=== PATIENT | male | born 1925 | race Caucasian/White ===

== ENCOUNTER 2016-08-26 17:37 | Inpatient (IN) | payer MEDICARE, OTHER ==
[~2016-08-26] VITALS: Ht 185.4 cm; Wt 109.1 kg
[~2016-08-26 17:37] MED LIST: ASPIRIN325 MG PO; BAYER CHEWABLE81 MG PO; BENADRYL25 MG PO; BUMEX2 MG PO; CIPRO500 MG PO; CLEOCIN HCL150 MG PO; CLEOCIN HCL300 MG PO; COMBIVENT RESPIM4 GM INH; DIOVAN HCT 80-11 TAB PO; DORYX150 MG PO; DOXYCYCLINE HY100 M2 PO; HYDROCODONE-APA1 TAB PO; HYTRIN5 MG PO; KLOR-CON 1010 MEQ PO; LASIX20 MG PO; LEVAQUIN500 MG PO; NORCO 7.5/325 T1 TA1 PO; PRILOSEC20 MG PO; STERAPRED DS 1210 MG PO; ULTRAM50 MG PO
[2016-08-26 18:37] LABS: BASOPHILS 0.1 % (0-2); EOSINOPHILS 0.1 % (0-7); HEMATOCRIT 34.1 % (42.0-54.0); HEMOGLOBIN 10.9 g/dL (13.5-17.5); IMMATURE GRANULOCYTES 0.1 % (0-5); LYMPHOCYTES 9.5 % (15-50); MCH 30.4 pg (26.0-34.0); MCV 95.3 fL (80.0-100.0); MEAN PLATELET VOLUME 9.3 fL (7.4-10.4); MONOCYTES 5.3 % (2-11); NEUTROPHILS 84.9 % (40-80); RBC 3.58 10x6/uL (4.20-6.10); RDW 14.4 % (11.5-14.5); WBC 9.6 10x3/uL (4.8-10.8)
[2016-08-26 18:42] LABS: PLATELET COUNT 143 10x3/uL (130-400)
[2016-08-26 19:21] LABS: ALBUMIN 2.3 g/dL (3.4-5.0); ALKALINE PHOSPHATASE 109 U/L (46-116); ALT (SGPT) 13 U/L (10-68); BILIRUBIN - TOTAL 0.57 mg/dL (0.2-1.3); CARBON DIOXIDE 26.6 mmol/L (21.0-32.0); GLUCOSE 104 mg/dL (74-106); PROTEIN - SERUM 6.4 g/dL (6.4-8.2); UREA NITROGEN 18 mg/dL (7-18)
[2016-08-26 19:32] LABS: CALC OSMOLALITY 280 mosm/kg (275-300); CALCIUM 8.2 mg/dL (8.5-10.1); CHLORIDE - SERUM 105 mmol/L (98-107); CREATINE KINASE 54 UL (21-232); POTASSIUM - SERUM 4.1 mmol/L (3.5-5.1); PRO BNP 1 pg/mL (0-450); SODIUM 140 mmol/L (136-145); eGFR NON AFRICAN AMERICAN 75 mL/min (90-120)
[2016-08-26 19:36] LABS: TROPONIN-I 0.073 ng/mL (0.000-0.060)
[2016-08-26 20:45] LABS: APPEARANCE CLEAR (CLEAR); COLOR YELLOW (YELLOW); SPECIFIC GRAVITY 1.025 (1.005-1.020)
[2016-08-26 20:46] LABS: BILIRUBIN NEGATIVE (NEGATIVE); GLUCOSE NEGATIVE (NEGATIVE); KETONE NEGATIVE (NEGATIVE); LEUKOCYTE ESTERASE 1+ (NEGATIVE); NITRITE POSITIVE (NEGATIVE); PROTEIN TRACE mg/dL (NEGATIVE); UROBILINOGEN NORMAL (NORMAL)
[2016-08-26 20:47] LABS: BACTERIA FEW /hpf (NONE SEEN); RED CELLS - URINE 0-5 /hpf (0-5); WHITE CELLS - URINE >50 /hpf (0-5)
--- NOTE | 2016-08-26 23:45 | NUR ---
PT RECEIVED FROM ER AWAKE, ALERT, CONFUSED. PT TRANSFERRED TO BED WITHOUT ANY DIFFICULTY. PT IS DROWSY AND CURRENTLY RESTING COMFORTABLY. CONTINUE TO MONITOR CLOSELY.
[2016-08-27 01:21] VITALS: BP 108/62
--- NOTE | 2016-08-27 03:35 | NUR ---
PT LYING IN BED, EYES CLOSED, RESPIRATIONS EVEN AND UNLABORED, EASILY ROUSABLE TO VERBAL STIMULI. PT DENIES ANY NEEDS, STATES HE IS COMFORTABLE AT THIS TIME. CONTINUE TO MONITOR CLOSELY.
[2016-08-27 03:44] VITALS: BP 108/62; Ht 185.4 cm; Wt 109.1 kg
[2016-08-27 04:47] VITALS: BP 103/59
--- NOTE | 2016-08-27 07:00 | NUR ---
PT WAS RECEIVED IN BED AWAKE AND ORIENTED X 2 AT THE BEGINNING OF THIS SHIFT. PLEASANT MAN. LEFT ARM 20 GUAGE IV GOING KVO RATE OF FLOW WITH NS. NO VOICED NEEDS AND/OR CONCERNS AT THIS TIME. WILL BE MONITORING PT AND ASSISTING PRN WITH ADL'S. CALL LIGHT IS IN REACH.
[2016-08-27 08:40] VITALS: BP 117/68
--- NOTE | 2016-08-27 17:07 | NUR ---
PT HAS HAD AN UNEVENTFUL DAY TODAY. BOBO CATHETER IS PATENT AND DRAINING CLEAR YELLOW URINE TO GRAVITY. FAMILY VISITED TODAY. CALL LIGHT IN REACH. PT HAS BEEN TURNED AND REPOSITIONED Q 2 HOURS.
--- NOTE | 2016-08-27 19:45 | NUR ---
PT AWAKE, ALERT, ORIENTED, LYING IN BED, HOB 30 DEGREES. PULLED PT UP IN THE BED PER REQUEST, DENIES ANY NEEDS. SON WAS IN ROOM, HAS LEFT NOW. FAMILY PHONE NUMBERS ON BEDSIDE TABLE, TO CALL WITH ANY CHANGES AND NEEDS. CONTINUE TO MONITOR CLOSELY. BED LOW, CALL LIGHT IN REACH.
[2016-08-27 20:24] VITALS: BP 125/75
[2016-08-28 01:28] VITALS: BP 115/60
--- NOTE | 2016-08-28 02:09 | NUR ---
PT LYING IN BED, HOB 30 DEGREES, EYES CLOSED, RESPIRATIONS EVEN AND UNLABORED. PT EASILY ROUSABLE TO VERBAL STIMULI, DENIES ANY NEEDS. PT'S PENIS IS SPLIT ON TOP R/T EDEMA. CALMASEPTINE ORDERED. CONTINUE TO MONITOR CLOSELY.
--- NOTE | 2016-08-28 04:21 | NUR ---
PT RESTING COMFORTABLY, IN NO ACUTE DISTRESS. CONTINUE TO MONITOR CLOSELY.
[2016-08-28 04:34] VITALS: BP 106/61
[2016-08-28 05:09] LABS: BASOPHILS 0 % (0-2); EOSINOPHILS 0.1 % (0-7); HEMATOCRIT 35.5 % (42.0-54.0); HEMOGLOBIN 11.4 g/dL (13.5-17.5); IMMATURE GRANULOCYTES 0.2 % (0-5); LYMPHOCYTES 13.5 % (15-50); MCH 30.4 pg (26.0-34.0); MCHC 32.1 g/dL (31.0-37.0); MCV 94.7 fL (80.0-100.0); MEAN PLATELET VOLUME 9.4 fL (7.4-10.4); MONOCYTES 8.7 % (2-11); NEUTROPHILS 77.5 % (40-80); PLATELET COUNT 145 10x3/uL (130-400); RBC 3.75 10x6/uL (4.20-6.10); RDW 14.2 % (11.5-14.5); WBC 9.2 10x3/uL (4.8-10.8)
[2016-08-28 05:31] LABS: CALC OSMOLALITY 274 mosm/kg (275-300); CALCIUM 8.1 mg/dL (8.5-10.1); CARBON DIOXIDE 31.6 mmol/L (21.0-32.0); CHLORIDE - SERUM 101 mmol/L (98-107); GLUCOSE 102 mg/dL (74-106); PRO BNP 7208 pg/mL (0-450); SODIUM 137 mmol/L (136-145); UREA NITROGEN 16 mg/dL (7-18); eGFR NON AFRICAN AMERICAN 75 mL/min (90-120)
[2016-08-28 05:32] LABS: POTASSIUM - SERUM 3.4 mmol/L (3.5-5.1)
--- NOTE | 2016-08-28 06:00 | NUR ---
PT AWAKE, ALERT, ORIENTED THIS A.M., DENIES ANY NEEDS. PT STATES HE IS FEELING SOME BETTER. CONTINUE TO MONITOR CLOSELY.
--- NOTE | 2016-08-28 07:22 | NUR ---
PT LAYING TO R SIDE SLEEPING. NO S/S DISTRESS NOTED. RR EVEN AND UNLABORED. WILL CONT TO MONITOR
--- NOTE | 2016-08-28 08:45 | NUR ---
PT YELLING OUT FROM ROOM THAT HIS LEGS HURT AND HE WANTS TO SIT ON SIDE OF THE BED. I WAS TOLD IN REPORT THAT PT WAS UNABLE TO GET OUT OF BED, FOR FEAR THAT HE WILL FALL I TOLD PT THAT HE CANNOT GET UP. PT IS VERY AGGITATED SCREAMING THAT "MY LEGS ARE ON FIRE". PT LEGS ARE RED AND SCALY. PULSES BILAT PALPABLE. BRIDGED HEELS AND PLACED PT HOUSE SHOES ON ASKED TO DO. PT STATES "MUCH BETTER". WILL CONT TO MONITOR.
[2016-08-28 08:46] VITALS: BP 108/61
[2016-08-28 12:00] VITALS: BP 105/57
--- NOTE | 2016-08-28 14:15 | NUR ---
PT UP IN CHAIR FAMILY IN ROOM. DENIES ANY PAIN DENIES ANY NEEDS
--- NOTE | 2016-08-28 15:04 | NUR ---
PT SITTING UP IN BED WATCHING TV, DENIES ANY NEEDS WILL CONT TO MONITOR.
--- NOTE | 2016-08-28 16:18 | NUR ---
* Is the patient Alert and Oriented? No 0 * How many steps to enter\\exit or inside your home? (2) 4 inch 0 * PCP DR Cristo Tejada 0 * [facility] [address] * Preadmission Environment Home with Family 0 * ADLs Partial Dependent 0 * Partial ADLs (Assistance needed) Bathing Dressing Eating Medication Management Toileting Transfers 0 * Equipment Oxygen Wheelchair 0 * List name and contact numbers for known caregivers / representatives who currently or will assist patient after discharge: Laquita- - [phone] Madeleine Fernandez- dtr- [phone]- night JR- son in law- [phone] 0 * Community resources currently utilized Other 0 * Please name any agencies selected above. Son in law states patient has care w/ "[facility]". 0 * Additional services required to return to the preadmission environment? No 0 * Can the patient safely return to the preadmission environment? Yes 0 * Has this patient been hospitalized within the prior 30 days at any hospital? Yes 0
--- NOTE | 2016-08-28 16:54 | NUR ---
Patient has dementia. CM checked his room and no one was present. TC to his , Laquita, no answer. TC to his daughter, Madeleine Fernandez. The son in law answered. He states he helps to take care of the patient. He states the patient has a nurse to help him at home from ?? "[facility]". CM will clarify w/ or dtr. The son in law states he is a little hard of hearing. The patient has home O2 which he does not require at times. He is wheelchair bound. He has a small shower in his room with a bench. Requires assistance for bathing and dressing. Has dementia therefore requires assistance with meds. MR Newman states the has been talking about "putting him into a assisted. " But he states they will be taking him home. Transportation needs to be determined per MR Newman. Patient had been at [facility] previously after shoulder surgery approximately 2 yrs ago per the son in law. Pharmacy- [facility] [address] DME provider- son in law cannot recall the name. CM will follow to assist as is appropriate.
[2016-08-28 17:00] VITALS: BP 94/64
[2016-08-28 19:41] VITALS: BP 84/53
--- NOTE | 2016-08-28 21:12 | NUR ---
HS MEDS GIVEN WITH FRESH ICE WATER. PT DENIES PAIN OR NEEDS.
--- NOTE | 2016-08-28 23:38 | NUR ---
PT RESTING WELL WITHOUT C/O OR DISTRESS NOTED. NO CHANGES NOTED IN ASSESSMENT. CALL LIGHT WITHIN REACH. WILL CONT TO MONITOR.
[2016-08-29 00:59] VITALS: BP 86/50
--- NOTE | 2016-08-29 01:56 | NUR ---
RESTING WITH EYES CLOSED, RESPERATIONS EVEN, NO S/S DISTRESS NOTED.
[2016-08-29 05:51] LABS: BASOPHILS 0.1 % (0-2); EOSINOPHILS 0.1 % (0-7); HEMATOCRIT 31.1 % (42.0-54.0); IMMATURE GRANULOCYTES 0.1 % (0-5); LYMPHOCYTES 17.7 % (15-50); MCH 30.5 pg (26.0-34.0); MCHC 32.2 g/dL (31.0-37.0); MCV 94.8 fL (80.0-100.0); MEAN PLATELET VOLUME 9.5 fL (7.4-10.4); MONOCYTES 9.8 % (2-11); NEUTROPHILS 72.2 % (40-80); PLATELET COUNT 130 10x3/uL (130-400); RBC 3.28 10x6/uL (4.20-6.10); RDW 14.3 % (11.5-14.5); WBC 7.3 10x3/uL (4.8-10.8)
[2016-08-29 06:02] LABS: CALC OSMOLALITY 280 mosm/kg (275-300); CARBON DIOXIDE 34.3 mmol/L (21.0-32.0); CHLORIDE - SERUM 100 mmol/L (98-107); GLUCOSE 103 mg/dL (74-106); MAGNESIUM - SERUM 1.7 mg/dL (1.8-2.4); PHOSPHOROUS 3.7 mg/dL (2.5-4.9); POTASSIUM - SERUM 3.6 mmol/L (3.5-5.1); SODIUM 139 mmol/L (136-145); UREA NITROGEN 20 mg/dL (7-18); eGFR NON AFRICAN AMERICAN 75 mL/min (90-120)
--- NOTE | 2016-08-29 07:10 | NUR ---
PT SITTING UP IN BED CNAS AT BEDSIDE CLEANING UP PT, WILL CONT TO MONITOR
[2016-08-29 08:35] VITALS: BP 96/55
--- NOTE | 2016-08-29 08:47 | NUR ---
ALBUMIN NOT GIVEN TUBING NOT IN [facility]Y CALLED WILL GIVE WHEN TUBING IS ON FLOOR
--- NOTE | 2016-08-29 09:20 | HP ---
PATIENT: MONY HALL MEDICAL RECORD: [id number] ACCOUNT: [id number] LOCATION:[address] : [birth year] ADMISSION DATE: 08/26/16 HISTORY AND PHYSICAL EXAMINATION DATE OF ADMISSION: 08/26/2016 CHIEF COMPLAINT: Shortness of breath. HISTORY OF PRESENT ILLNESS: The patient is an 89-year-old gentleman, who is not a patient of Dr. Robles'marianne, but apparently the Emergency Room physician felt that he had been a patient of Dr. Thompson. The patient is therefore admitted. He was admitted for shortness of breath. PAST MEDICAL HISTORY: Apparently significant that he has had dementia. He has also had a history of having dependent edema. He has had BPH, congestive heart failure, rheumatoid arthritis. FAMILY HISTORY: Apparently, mother and father both in their 80s of heart disease. SOCIAL HISTORY: The patient was born and raised in [place]. He has lived in [place] 20+ years. Apparently, he is . ALLERGIES: He has no known drug allergies. MEDICATIONS: Omeprazole 20 mg daily, aspirin 325 once a day, Hytrin 5 mg p.o. day. HABITS: The patient states that he continued to be a 1 pack per day smoker. REVIEW OF SYSTEMS: CONSTITUTIONAL: He denies any headaches, seizure or syncope. Denied change in visual or auditory acuity. PULMONARY: He has reported increasing shortness of breath. CARDIOVASCULAR: He denies any chest pain, palpitation, PND or orthopnea. GASTROINTESTINAL: No chronic nausea, vomiting, melena or hematochezia. GENITOURINARY: No urgency, frequency, or dysuria. PHYSICAL EXAMINATION: VITAL SIGNS: In the Emergency Room, the patient was afebrile. His vital signs were stable. GENERAL: He is oriented to person, place, and not time. HEENT: Head is normocephalic. No lesions. Ears: TMs clear. Eyes: Pupils equal, round and reactive to light. Extraocular movements are intact. Nasal cavity, oral cavity, oropharynx clear. NECK: Supple. There is no adenopathy. HEART: Has a regular rate. LUNGS: Clear. ABDOMEN: Soft, bowel sounds positive. EXTREMITIES: The patient does have 2+ pretibial edema. LABORATORY DATA: The patient had a white count of 9.6, hemoglobin 10.9, hematocrit was 34.1, his platelets were 143. Has sodium of 140, potassium 4.1, chloride 105, CO2 is 26, BUN was 18, creatinine was 0.1. The patient had HISTORY AND PHYSICAL [id number] MONY HALL urinalysis, which showed greater than 50 wbc's per high powered field, few bacteria were present. Chest x-ray on the revealed chronic changes, minimal area of basilar atelectasis or infiltrates were noted. ASSESSMENT: 1. Urinary tract infection. 2. History of dependent edema. 3. Benign prostatic hypertrophy. PLAN: The patient will be admitted. Urine cultures will be obtained. He will be placed on Rocephin 1 gram. He will also be placed on Lasix 20 mg IV for slow gentle diuresis and continue to evaluate. TRANSINT:[id number] Voice Confirmation ID: [id number] DOCUMENT ID: [id number] MARGA CINTRON MD at 0920 CC: [id number] DICTATION DATE: 08/27/16 0637 COMMUNICATIONS PLANNER: 08/27/16 0912 ADM IN [place] [id number] [place] [address]
--- NOTE | 2016-08-29 11:04 | NUR ---
PT ASLEEP WILL DO DRESSING CHANGE AFTER LUNCH TRAY IS FINISHED FAMILY AT BEDSIDE NO S/S OF DISTRESS WILL CONTINUE TO MONITOR
[2016-08-29 11:44] VITALS: BP 90/49
[2016-08-29 16:00] VITALS: BP 89/62
--- NOTE | 2016-08-29 18:27 | NUR ---
HELPED PT GET BACK TO BED, TURNED LIGHTS OFF, PT READY TO GO TO SLEEP DENIES ANY NEEDS
[2016-08-29 21:00] VITALS: BP 91/52
--- NOTE | 2016-08-29 22:48 | NUR ---
HS MEDS GIVEN, REPOSITIONED IN BED FOR COMFORT.
--- NOTE | 2016-08-30 00:45 | NUR ---
RESTING WITH EYES CLOSED, RESPERATIONS EVEN, NO S/S DISTRESS NOTED.
[2016-08-30 04:00] VITALS: BP 96/52
[2016-08-30 05:08] LABS: BASOPHILS 0.1 % (0-2); EOSINOPHILS 0.3 % (0-7); HEMATOCRIT 31.5 % (42.0-54.0); IMMATURE GRANULOCYTES 0.1 % (0-5); LYMPHOCYTES 13.6 % (15-50); MCH 29.9 pg (26.0-34.0); MCHC 31.7 g/dL (31.0-37.0); MCV 94.3 fL (80.0-100.0); MEAN PLATELET VOLUME 9.4 fL (7.4-10.4); MONOCYTES 7.6 % (2-11); NEUTROPHILS 78.3 % (40-80); PLATELET COUNT 146 10x3/uL (130-400); RBC 3.34 10x6/uL (4.20-6.10); RDW 14.3 % (11.5-14.5); WBC 7.6 10x3/uL (4.8-10.8)
[2016-08-30 05:21] LABS: ANION GAP 9.9 mmol/L (8-16); CALCIUM 7.8 mg/dL (8.5-10.1); CARBON DIOXIDE 31.9 mmol/L (21.0-32.0); CREATININE - SERUM 1.3 mg/dL (0.6-1.3); MAGNESIUM - SERUM 1.7 mg/dL (1.8-2.4); PHOSPHOROUS 3.6 mg/dL (2.5-4.9); POTASSIUM - SERUM 3.8 mmol/L (3.5-5.1)
[2016-08-30 08:00] VITALS: BP 103/49
--- NOTE | 2016-08-30 10:14 | NUR ---
RESP UL ON 02 1L PA. IV PATENT. JIHAN INTACT. TELEMETRY CAF. HR 82. WILL CONT. PLAN OF CARE.
--- NOTE | 2016-08-30 11:00 | NUR ---
UP TO CHAIR WITH PT ASSIST.
[2016-08-30 11:45] VITALS: BP 99/53
[2016-08-30 15:56] VITALS: BP 103/55
--- NOTE | 2016-08-30 19:35 | NUR ---
ASSESSMENT COMPLETE, ALERT AND ORIENTED TO SELF AND PLACE. O2 AT 2 LITER VIA NS, RT STATED THAT PTS SATS WERE 88 ON RA SO SHE PLACED O2 BACK ON PT. OV TO LEFT FOREARM WITH NS AT KVO, SITE CLEAN AND DRY. BOBO DRAINING TO GRAVITY, PT DENIES PAIN OR NEEDS, BED LOW, CL IN REACH.
[2016-08-30 21:30] VITALS: BP 105/58
--- NOTE | 2016-08-30 22:10 | NUR ---
HS MEDS GIVEN, DENIES PAIN OR NEEDS. BED LOW, CL IN REACH.
[2016-08-31 00:55] VITALS: BP 94/49
[2016-08-31 05:55] VITALS: BP 103/61
[2016-08-31 07:04] LABS: BASOPHILS 0.1 % (0-2); EOSINOPHILS 0.4 % (0-7); HEMATOCRIT 33.8 % (42.0-54.0); HEMOGLOBIN 10.6 g/dL (13.5-17.5); IMMATURE GRANULOCYTES 0.1 % (0-5); LYMPHOCYTES 14.7 % (15-50); MCHC 31.4 g/dL (31.0-37.0); MCV 95.8 fL (80.0-100.0); MEAN PLATELET VOLUME 9.4 fL (7.4-10.4); NEUTROPHILS 77.7 % (40-80); PLATELET COUNT 183 10x3/uL (130-400); RBC 3.53 10x6/uL (4.20-6.10); RDW 14.3 % (11.5-14.5); WBC 6.9 10x3/uL (4.8-10.8)
--- NOTE | 2016-08-31 07:17 | NUR ---
AM ROUNDS- PT IN BED, REQUESTED A CUP OF COFFEE. WILL PROVIDED PT WITH SOME COFFEE. PT DENIES ANY OTHER NEEDS AT THIS TIME. BED LOW AND LOCKED, BEDSIDE RAILS X2, LT ARM IV INFUSING NS AT KVO. CALL LIGHT IN REACH, NAD NOTED, WILL CONTINUE TO MONITOR.
[2016-08-31 07:19] LABS: ANION GAP 6.7 mmol/L (8-16); CALCIUM 8.3 mg/dL (8.5-10.1); CARBON DIOXIDE 36.4 mmol/L (21.0-32.0); CREATININE - SERUM 1.2 mg/dL (0.6-1.3); POTASSIUM - SERUM 4.1 mmol/L (3.5-5.1)
--- NOTE | 2016-08-31 08:00 | NUR ---
ADMINISTERED MORNING MEDS. PT IN BED, FIXING TO EAT BREAKFAST. PHOTOCOMPOSING MACHINE OPERATOR AT BEDSIDE TO DO VITAL SIGNS. PT DENIES ANY NEEDS AT THIS TIME. CALL LIGHT IN REACH, NAD NOTED, WILL CONTINUE TO MONITOR.
[2016-08-31 08:20] VITALS: BP 91/57
[2016-08-31 11:44] VITALS: BP 101/67
--- NOTE | 2016-08-31 13:07 | NUR ---
PT UP TO CHAIR, ASKED TO HAVE HIS JACKET PUT AROUND HIS SHOULDERS. PT DENIES ANY OTHER NEEDS AT THIS TIME. CALL LIGHT IN REACH, NAD NOTED, WILL CONTINUE TO MONITOR.
[2016-08-31 16:00] VITALS: BP 100/60
--- NOTE | 2016-08-31 17:06 | NUR ---
Rehab Note- Acute Rehab Prescreen order received. Will visit with the patient. He is noted to be wheelchair bound but was noted to be mod I with transfer, now noted to require 75% assist per PT. Will follow the patient at this time. Thank you for this referral! Michelle Reardon RN Clinical Liaison, [facility] Rehab
[2016-08-31 20:16] VITALS: BP 110/69
--- NOTE | 2016-08-31 20:19 | NUR ---
PT LYING IN BED, AWAKE, ALERT, ORIENTED AT THIS TIME, REQUESTING A SHOWER, DENIES ANY OTHER NEEDS. CONTINUE TO MONITOR CLOSELY. BED LOW, CALL LIGHT IN REACH, SIDE RAILS X 2, HOB 20 DEGREES.
[2016-09-01 00:15] VITALS: BP 99/60
--- NOTE | 2016-09-01 01:01 | NUR ---
PT LYING IN BED, EYES CLOSED, RESPIRATIONS EVEN AND UNLABORED. PT IS IN NO ACUTE DISTRESS. CONTINUE TO MONITOR CLOSELY.
[2016-09-01 05:15] VITALS: BP 82/44
[2016-09-01 05:54] LABS: BASOPHILS 0.2 % (0-2); EOSINOPHILS 0.5 % (0-7); HEMATOCRIT 33.8 % (42.0-54.0); HEMOGLOBIN 10.6 g/dL (13.5-17.5); IMMATURE GRANULOCYTES 0.3 % (0-5); LYMPHOCYTES 17.6 % (15-50); MCHC 31.4 g/dL (31.0-37.0); MCV 95.8 fL (80.0-100.0); MEAN PLATELET VOLUME 9.6 fL (7.4-10.4); NEUTROPHILS 73.4 % (40-80); RBC 3.53 10x6/uL (4.20-6.10); RDW 14.1 % (11.5-14.5); WBC 6.2 10x3/uL (4.8-10.8)
[2016-09-01 06:02] LABS: PLATELET COUNT 235 10x3/uL (130-400)
--- NOTE | 2016-09-01 06:12 | NUR ---
PT AWAKE, ALERT, ORIENTED, DENIES ANY NEEDS. PT HAS BEEN PULLED UP IN BED AND REPOSITIONED. AM MED GIVEN WITHOUT ANY DIFFICULTY. CONTINUE TO MONITOR.
[2016-09-01 06:32] LABS: ANION GAP 9.6 mmol/L (8-16); CALCIUM 8.3 mg/dL (8.5-10.1); CARBON DIOXIDE 34.5 mmol/L (21.0-32.0); CREATININE - SERUM 1.3 mg/dL (0.6-1.3); POTASSIUM - SERUM 4.1 mmol/L (3.5-5.1)
--- NOTE | 2016-09-01 07:40 | NUR ---
AM ROUNDING- RECEIVED REPORT FROM SCREEN PRINT OPERATOR NURSE HENNY. PT IS CURRENTLY LAYING IN BED ON BACK WITH EYES CLOSED RESTING. ON MONITOR SHOWING CONTROLLED A-FIB, HR 85. ON 02 AT 2L VIA NC. IV SEEN TO LEFT FOREARM WITH NS RUNNING AT KVO. CHRONIC BOBO CATHETER SEEN. NO NEED AT CURRENT TIME. WILL CONTINUE TO MONITOR AND CONTINUE WITH PLAN OF CARE.
[2016-09-01 07:56] VITALS: BP 96/58
--- NOTE | 2016-09-01 12:07 | NUR ---
Rehab Note- Spoke with the patient, interested in [facility] IRF stay. Will plan to admit today if the patient's physician are ready for discharge from the acute hospital. Spoke with ALFREDO Escobar and CHEKO Delgado. Thank you for this referral! Michelle Reardon RN Clinical Liaison, [facility] Rehab
[2016-09-01] MEDS ORDERED: IPRAT-ALBUT 0.5-3 ML INH (12:09)
[2016-09-01] MEDS ORDERED: BROVANA15 MCG/2 M INH (12:09)
[2016-09-01] MEDS ORDERED: PULMICORT0.5 MG/21 UPD (12:11)
--- NOTE | 2016-09-01 14:25 | NUR ---
PT IS CURRENTLY SITTING UP IN CHAIR RESTING. PT IS D/C TO REHAB TODAY. ASSISTED PT DIALING WIFES PHONE NUMBER SO HE CAN CALL AND TELL HER. NO NEED AT CURRENT TIME. WILL CONTINUE TO MONITOR AND AWAIT D/C PAPERWORK.
--- NOTE | 2016-09-01 14:27 | NUR ---
Patient Name: MONY HALL Encounter No: [id number] : 1925 Primary Insurance: MEDICARE A & B Anticipated DC Date: 09-01-2016 Planned Disposition: INPATIENT REHAB External Planned Provider: [facility] INPATIENT REH[facility] DCP follow-up note: CM SPOKE TO PT IN ROOM REGARDING ORDER FOR INPATIENT REHAB. PT IS INTERESTED IN INPATIENT REHAB BUT WOULD PREFER NOT TO GO BACK TO THE [facility] FOR REHAB NOR IS HE INTERESTED IN SNF CARE. PT IN AGREEMENT WITH DISCHARGE TODAY TO [facility] INPATIENT REHAB, HE HAS MET WITH THE REHAB PERSON AND WOULD LIKE TO GIVE THEM A TRY. PT REPORTS HE WILL CALL HIS AND LET HER KNOW. IMPORTANT MESSAGE FROM MEDICARE PROVIDED AND EXPLAINED. CM CALLED PT'S SPOUSE AT HOME, , LEFT MESSAGE. CM CALLED PT'S LISTED PRIMARY EMERGENCY CONTACT, LORRAINE FLORES WHO REPORTS BEING PT'S PRIMARY CAREGIVER AT HOME AND HE IS IN AGREEMENT WITH INPATIENT REHAB AND WILL NOTIFY JOSI TODAY. CM SPOKE TO LAINA OF INPATIENT REHAB, THEY PLAN TO ACCEPT PT TODAY FOR REHAB. [facility] INPATIENT REHAB TO CONTACT MED 2 NURSE WITH ROOM NUMBER WHEN READY TO ACCEPT PT AND NURSE REPORT. Rodrigo Serrato, CASE MANAGEMENT
--- NOTE | 2016-09-01 17:34 | NUR ---
1700- CALLED REPORT TO REHAB. SPOKE WITH VAUGHN AND GAVE REPORT.
--- NOTE | 2016-09-01 17:34 | NUR ---
D/C INSTRUCTIONS EXPLAINED TO PT. D/C PAPERWORK SIGNED BY PT AND PLACED IN CHART. IV TO LEFT FOREARM REMOVED WITH CATH TIP INTACT. COVERED SITE WITH 2X2 GUAZE PADS AND SECURED SITE WITH TEGADERM. TOLERATED WELL. HEART MONITOR REMOVED AND RETURNED TO [facility] IN TELEMETRY. PT D/C TO REHAB VIA WHEELCHAIR.
== END 2016-09-01 17:37 | DRG 292 ==
LOC: D.ER 17:37 → D.ICU 20:54 → D.ER 20:54 → D.M2 20:54 → D.ICU 22:21 → D.M2 23:18
PROVIDERS: Emergency Medicine; Family Medicine; Nurse Practitioner Family; ADMIT Family Medicine Adult Medicine
DX: I11.0 Hypertensive heart disease with heart failure (principal); N39.0 Urinary tract infection, site not specified; I50.9 Heart failure, unspecified; J44.9 Chronic obstructive pulmonary disease, unspecified; F03.90 Unspecified dementia, unspecified severity, without behavioral disturbance, psychotic disturbance, mood disturbance, and anxiety; N40.0 Benign prostatic hyperplasia without lower urinary tract symptoms; R19.02 Left upper quadrant abdominal swelling, mass and lump; B96.20 Unspecified Escherichia coli [E. coli] as the cause of diseases classified elsewhere; Z86.73 Personal history of transient ischemic attack (TIA), and cerebral infarction without residual deficits; Z72.0 Tobacco use

== ENCOUNTER 2016-09-01 16:50 | Inpatient (IN) | payer MEDICARE, OTHER ==
[~2016-09-01] VITALS: Ht 185.4 cm; Wt 77.1 kg
[~2016-09-01 16:50] MED LIST changes: +BROVANA15 MCG/2 M INH; +IPRAT-ALBUT 0.5-3 ML INH; +PULMICORT0.5 MG/21 UPD
--- NOTE | 2016-09-01 19:30 | NUR ---
RECEIVED REPORT FROM DAY SHIFT NURSE, PT ARRIVED TO REHAB UNIT WITH MED 2 STAFF VIA WHEELCHAIR, PT ALERT AND ORIENTED.
[2016-09-01 20:00] VITALS: BP 122/65
--- NOTE | 2016-09-01 23:15 | NUR ---
PT REST QUIETLY IN BED WITH EYE CLOSE, BED LOW, CALL LIGHT WITHIN REACH.
[2016-09-02 00:55] VITALS: BMI 22.4
--- NOTE | 2016-09-02 01:18 | NUR ---
ADMISSION ASSESSMENT COMPLETE. PATIENT STATES HE IS UNABLE TO SIGN HIS ADMISSION DOCUMENTS DUE TO POOR MANUAL DEXTERITY. INFORMATION CONTAINED IN THE DOCUMENTS WAS EARLIER EXPLAINED TO PATIENT BY SAMANTHA CALI. EXPLAINED TO PATIENT THAT HE CANNOT SIGN, HIS PRIMARY NURSE AND I WILL WITNESS HIS DOCUMENTS. PATIENT AGREES.
--- NOTE | 2016-09-02 07:10 | NUR ---
LYING IN BED EYES CLOSED RESTING QUIETLY. EASILY AROUSED VERBAL STIMULI. CALL LIGHT IN REACH.
[2016-09-02 07:28] LABS: BASOPHILS 0.2 % (0-2); EOSINOPHILS 0.5 % (0-7); HEMATOCRIT 32.3 % (42.0-54.0); HEMOGLOBIN 10.3 g/dL (13.5-17.5); IMMATURE GRANULOCYTES 0.3 % (0-5); LYMPHOCYTES 20.8 % (15-50); MCH 30.7 pg (26.0-34.0); MCHC 31.9 g/dL (31.0-37.0); MCV 96.1 fL (80.0-100.0); MEAN PLATELET VOLUME 9.5 fL (7.4-10.4); NEUTROPHILS 70.2 % (40-80); PLATELET COUNT 226 10x3/uL (130-400); RBC 3.36 10x6/uL (4.20-6.10); RDW 14.3 % (11.5-14.5); WBC 6.1 10x3/uL (4.8-10.8)
[2016-09-02 07:57] LABS: CALCIUM 8.3 mg/dL (8.5-10.1); CARBON DIOXIDE 32.6 mmol/L (21.0-32.0); CREATININE - SERUM 1.1 mg/dL (0.6-1.3); POTASSIUM - SERUM 3.6 mmol/L (3.5-5.1)
[2016-09-02 09:11] VITALS: BP 102/64
--- NOTE | 2016-09-02 09:30 | NUR ---
PT IN THERAPY
[2016-09-02 10:35] VITALS: Ht 185.4 cm; Wt 77.1 kg
--- NOTE | 2016-09-02 11:15 | NUR ---
IN GYM WITH PHYSICAL THERAPY
--- NOTE | 2016-09-02 13:30 | NUR ---
PT IN SHOWER WITH ASSISTANCE FROM FABRICIO ROD. PT WAS ABLE TO PERFORM SHOWER ON HIS OWN WITH STANDBY ASSISTANCE. PT C/O SCROTUM DISCOMFORT, AREA IS RED AND ALSO IN GROIN AREA WILL ORDER MELINDA OINTMENT.
--- NOTE | 2016-09-02 13:30 | NUR ---
SITTING UP ON BED.DENIES NEEDS.
--- NOTE | 2016-09-02 15:16 | NUR ---
SITTING UP IN BED RESTING QUIETLY. NO CONCERNS VOICED. OXYGEN IN PLACE ON 2L VIA NASAL CANULA. CALL LIGHT IN REACH.
--- NOTE | 2016-09-02 17:19 | NUR ---
ASSISTED BACK TO BED WITH MOD ASSIST. NO CONCERNS VOICED AT THIS TIME. CALL LIGHT AND BEDSIDE TABLE IN REACH
--- NOTE | 2016-09-02 18:50 | NUR ---
REMOVED OLD MEPILEX DRESSING TO BUTTOCKS. NO DRAINAGE PRESENT. BUTTOCKS IS RED 2CM STAGE 1 DECUB ON COCCYX AREA. REAPPLIED MEPILEX.
--- NOTE | 2016-09-02 19:15 | NUR ---
PT RESTING WITH EYES CLOSED, RESP QUIET, NO DISTRESS NOTED, LEFT UNDISTURBED AT THIS TIME
[2016-09-02 20:30] VITALS: BP 93/59
--- NOTE | 2016-09-02 20:30 | NUR ---
PT RESTING WITH EYES CLOSED, AROUSES TO SOFT VERBAL STIMULATION, PT CONFUSED TO PLACE AND TIME, PT REORIENTED, ASSESSMENT PER FLOW SHEE, VS OBTAINED, PT DENIES NEEDS OR PAIN AT THIS TIME
--- NOTE | 2016-09-02 21:25 | NUR ---
PT RESTING WITH EYES CLOSED, AROUSES TO SOFT VERBAL STIMULATION, ADM 2100 MED PO PER MD ORDERS, SE EMAR, PT DENIES NEEDS OR PAIN AT THIS TIME
--- NOTE | 2016-09-02 22:33 | NUR ---
PT HOLLERS OUT, PT REPOSITIONED TO RIGHT SIDE WITH PILLOW BEHIND BACK, UNDER ABD, AND BETWEN KNEES, PT DENIES FURTHER NEEDS, BED IN LOW POSTION, SIDE RAIL X 2, CALL LIGHT IN REACH
--- NOTE | 2016-09-03 | NUR ---
PT RESTING WITH EYES CLOSED, RESP QUIET, NO DISTRESS NOTED, LEFT UNDISTURBED AT THIS TIME
--- NOTE | 2016-09-03 02:05 | NUR ---
PT RESTING WITH EYES CLOSED, RESP QUIET, NO DISTRESS NOTED, LEFT UNDISTURBED AT THIS TIME, BED IN LOW POSITION, SIDE RAILS X 2, CALL LIGHT IN REACH, BED ALARM CONTINUES WORKING PROPERLY
--- NOTE | 2016-09-03 04:10 | NUR ---
PT RESTING WITH EYES CLOSED, RESP QUIET, NO DISTRESS NOTED, LEFT UNDISTURBED AT THIS TIME
--- NOTE | 2016-09-03 06:31 | NUR ---
PT RESTING WITH EYES CLOSED, AROUSES TO SOFT VERBAL STIMULATION, PT TO SIDE OF BED REQUESTED, ADM 0600 MED PO PER MD ORDERS, SEE EMAR, PT DENIES FURTHER NEEDS
--- NOTE | 2016-09-03 06:59 | NUR ---
SHIFT REPORT TO DAY SHIFT
--- NOTE | 2016-09-03 07:10 | NUR ---
SITTING UP ON SIDE OF BED. ALERT AND ORIENTED TO PERSON AND PLACE, REORIENTED TO TIME. PLEASANT AFFECT. CALL LIGHT IN REACH.
--- NOTE | 2016-09-03 08:56 | RHP ---
PATIENT: MONY HALL MEDICAL RECORD: [id number] ACCOUNT: [id number] [facility] [birth year] ADMISSION DATE: 09/01/16 REHABILITATION HISTORY AND PHYSICAL EXAMINATION POST ADMISSION PHYSICIAN EXAMINATION DATE OF ADMISSION: 09/01/2016 ADMITTING DIAGNOSIS: CHF with exacerbation. HISTORY OF PRESENT ILLNESS: The patient is admitted to the inpatient rehab with CHF and exacerbations. An 89-year-old gentleman that was presented to the Emergency Room with shortness of breath. He was found to have a UTI dependent edema, elevated BNP required supplemental oxygen treatment. He has a chronic Morocho catheter due to his immobility and use of transfer equipment and wheelchair. He states he is independent with all of his ADLs. He is currently max assist to total assist with mobility and he is set up for max assist for ADLs. He plans to return home and hopefully get back to his prior level of functioning or better if possible. COMORBIDITIES: In this patient include urinary tract infection, dependent edema, benign prostatic hypertrophy with chronic Morocoh, CVA, hypertension, lymphedema, history of TIA, BPH, elevated BNP, COPD, dementia, melanoma. He has had an abdominal wall mass in his left upper quadrant and also a history of rheumatoid arthritis. PAST MEDICAL HISTORY: Significant for dementia, dependent edema, BPH, CHF, rheumatoid arthritis, CVA, glaucoma, hypertension, COPD, pneumonia and cellulitis. PAST SURGICAL HISTORY: Includes right hip replacement, hernia surgery, ulcer surgery, shoulder cyst removal and back surgery. ALLERGIES: No known drug allergies. CURRENT MEDICATIONS: Include Hytrin 5 mg daily, potassium 20 mEq daily, Protonix 40 mg daily, Lasix 40 mg daily, budesonide 0.5 mg b.i.d., aspirin 325 mg daily, Brovana 15 mcg b.i.d., albuterol updrafts as needed and polyethylene glycol 17 grams in 8 ounces of water daily. HABITS: No alcohol or tobacco use. FAMILY HISTORY: Noncontributory. SOCIAL HISTORY: The patient hopes to return back home. REVIEW OF SYSTEMS: GENERAL: He does complain of weakness. HEENT: Denies cold, cough, or congestion. CARDIOVASCULAR: Denies chest pain. PHYSICAL EXAMINATION: VITAL SIGNS: Stable, afebrile. GENERAL: An elderly gentleman in no acute distress, alert upon exam. HEENT: Normocephalic, atraumatic. Mucosa moist. HISTORY AND PHYSICAL [id number] MONY HALL NECK: Supple, with no lymphadenopathy. LUNGS: Clear in upper [place]. HEART: Regular rate and rhythm. ABDOMEN: Benign. EXTREMITIES: Does have some trace peripheral edema. NEUROLOGIC: Intact. LABORATORY DATA: His white count 6.1, H&H 10 and 32 and platelet count is 226. His sodium is 139, potassium 3.6, BUN and creatinine of 33 and 1.1 and blood sugar was noted to be 95. 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 The patient has potential to make improvement. We instituted the following multidisciplinary therapies to include, but not limited to physical, occupational, respiratory, speech, nutritional services, prosthetics and orthotics. Given his complex condition and risk for more complications, rehabilitation services cannot be provided at a low level of care such as a intermediate facility. PLAN: 1. Admit to [facility] rehab for intensive inpatient therapy to include the following disciplines: A. Physical therapy to improve gait, all transfer skills and bed mobility to a modified independent level. B. Occupational therapy to improve activities of daily living to a modified independent level. C. Case management to assist with discharge planning and placement options. D. Nutrition to assist with nutritional needs. E. Rehabilitation nursing to assist in monitoring the patient's underlying medical conditions and to assist with any type of bowel or bladder management. 2. The patient's current medication and medical care will be continued. 3. The patient will be placed on standard fall precautions. 4. The patient's estimated length of stay is approximately 7-10 days. 5. Discuss this patient during care team staff meeting this week. TRANSINT:[id number] Voice Confirmation ID: [id number] DOCUMENT ID: [id number] CHRIST notes whether there has been none or any medical/functional change since admission: - CHRIST attests patient continues to be appropriate for IRF: - HISTORY AND PHYSICAL [id number] MONY HALL SCOTT MD at 0856 CC: [id number] DICTATION DATE: 09/02/16 0846 MANAGER SALES TRAINING: 09/02/16 0934 ADM IN [place] [id number]
--- NOTE | 2016-09-03 09:08 | NUR ---
SITTING UP IN BED 45 DEGREES WATCHING TV QUIETLY. NO CONCERNS VOICED AT THIS TIME. CALL LIGHT IN REACH.
[2016-09-03 09:12] VITALS: BP 84/45
--- NOTE | 2016-09-03 11:06 | NUR ---
WOUND CARE CONSULT: PT HAS A STAGE 2 PRESSURE INJURY ON THE RIGHT BUTTOCK (COCCYX REGION) MEASURING 4CM X 3.5CM. IT IS PARTIAL THICKNESS/SUPERFICIAL SKIN LOSS. THERE IS A SKIN TEAR CENTERED IN THE GLUTEAL FOLD/SACRAL REGION MEASURING 2CM X 0.5CM. THERE IS A SKIN TEAR ON HIS PENIS. CALMOSEPTINE CREAM IS BEING APPLIED TO PROTECT. RECOMMEND COVERING SACRAL / BUTTOCKS WITH MEPILEX SACRAL DRESSING/CHANGING IT EVERY 3 DAYS - PT CAN TURN HIMSELF IN BED AND STAFF STATES THAT HE DOES TURN FREQUENTLY EXCEPT IF HE IS WATCHING TV. A CUSHION HAS BEEN OBTAINED FOR HIS WHEELCHAIR. WOUND CARE WILL CONTINUE MONITORING.
--- NOTE | 2016-09-03 11:14 | NUR ---
IN GYM WITH PHYS THERAPY, TOLERATING WELL PER MAO.
--- NOTE | 2016-09-03 13:37 | NUR ---
SITTING UP IN BED VISITING FAMILY. NO CONCERNS VOICED. CALL LIGHT IN REACH
--- NOTE | 2016-09-03 15:30 | NUR ---
SITTING UP BED VISITING WITH FAMILY. NO CONCERNS VOICED. CALL LIGHT IN REACH
--- NOTE | 2016-09-03 17:25 | NUR ---
LYING IN BED EYES CLOSED RESTING QUIETLY. CALL LIGHT IN REACH. EASILY AROUSED WITH STIMULI.
--- NOTE | 2016-09-03 18:00 | NUR ---
IN BED.CL IN REACH.
[2016-09-03 19:30] VITALS: BP 97/52
--- NOTE | 2016-09-03 19:40 | NUR ---
PT NOTED SITTING ON THE SIDE OF HIS BED. HE REQUESTED ASSIST MOVING FURTHER TOWARDS THE HOB SO HE COULD LIE DOWN IN THE CORRECT POSITION. MOD. ASSIST NEEDED FOR TRANSFER. PT IS VERY [place]. O2 IS ON @ 2LPM PER NC. BOBO CATH IS PATENT AND DRAINING TO A GRAVITY BAG. MEPILEX DRESSING IS INTACT TO BUTTOCKS. SR'S ARE UP X 2 IN BED. CALL LIGHT AND BEDSIDE TABLE ARE WITHIN EASY REACH.
--- NOTE | 2016-09-03 21:19 | NUR ---
PT IS RESTING QUIETLY IN BED WITH EYES CLOSED. RESPS ARE EVEN AND UNLABORED. NO ACUTE DISTRESS NOTED.
--- NOTE | 2016-09-03 23:50 | NUR ---
RESTING IN BED ON LEFT SIDE. NO DISTRESS EVIDENT.
--- NOTE | 2016-09-04 03:00 | NUR ---
RESTING QUIETLY IN BED WITH EYES CLOSED. RESPS ARE EVEN AND UNLABORED. NO ACUTE DISTRESS NOTED.
[2016-09-04 07:05] LABS: BASOPHILS 0.3 % (0-2); EOSINOPHILS 0.5 % (0-7); HEMOGLOBIN 10.2 g/dL (13.5-17.5); IMMATURE GRANULOCYTES 0.3 % (0-5); LYMPHOCYTES 18.8 % (15-50); MCH 30.4 pg (26.0-34.0); MCHC 31.9 g/dL (31.0-37.0); MCV 95.5 fL (80.0-100.0); MEAN PLATELET VOLUME 9.5 fL (7.4-10.4); MONOCYTES 8.6 % (2-11); NEUTROPHILS 71.5 % (40-80); PLATELET COUNT 262 10x3/uL (130-400); RBC 3.35 10x6/uL (4.20-6.10); RDW 14.3 % (11.5-14.5); WBC 7.4 10x3/uL (4.8-10.8)
[2016-09-04 07:23] LABS: CALC OSMOLALITY 279 mosm/kg (275-300); CALCIUM 8.2 mg/dL (8.5-10.1); CARBON DIOXIDE 32.1 mmol/L (21.0-32.0); CHLORIDE - SERUM 99 mmol/L (98-107); GLUCOSE 91 mg/dL (74-106); POTASSIUM - SERUM 3.8 mmol/L (3.5-5.1); SODIUM 137 mmol/L (136-145); UREA NITROGEN 30 mg/dL (7-18); eGFR NON AFRICAN AMERICAN 75 mL/min (90-120)
--- NOTE | 2016-09-04 07:30 | NUR ---
RESTING QUIETLY IN BED CALL LIGHT IN REACH
[2016-09-04 08:00] VITALS: BP 101/60
--- NOTE | 2016-09-04 08:00 | NUR ---
PATIENT ALERT/ORIENT X4. SITTING UP AT THIS SIDE OF THE BED TO EAT BREAKFAST. VERY HARD OF HEARING. HAS A BOBO CATH. DRAINGING CLEAR YELLOW URINE. CALL LIGHT WITHIN REACH.
--- NOTE | 2016-09-04 10:36 | NUR ---
PATIENT IN REHAB ROOM. WORKING WITH PHYSICAL THERAPIST. DENIES ANY PAIN/DISC AT THIS TIME.
--- NOTE | 2016-09-04 15:29 | NUR ---
PATIENT SITTING UP IN WHEELCHAIR IN ROOM AFTER THERAPY. THIS NURSE ASKED THERAPIST TO HELP PATIENT BACK TO BED BEFORE THEY LEAVE FOR THE DAY. PATIENT IS A TOTAL ASST WITH SLIDING BOARD INTO BED.
--- NOTE | 2016-09-04 15:36 | NUR ---
Nutrition Follow Up: Pt is eating 54% meal avg on an AHA diet. He is receiving Ensure BID. +BM 09/03/16. Labs reviewed. Meds noted. Rec continue current diet. RD following.
--- NOTE | 2016-09-04 18:16 | NUR ---
PATIENT STILL SITING UP IN WHEELCHAIR. EATTING SUPPER. CALL LIGHT WITHIN REACH
[2016-09-04 19:30] VITALS: BP 98/59
--- NOTE | 2016-09-04 19:35 | NUR ---
PT IN BED WITH HOB UP FOR COMFORT. EYES CLOSED. CHEST RISING AND FALLING. BOBO. NO IV. O2 @ 2L VIA N/C. CON[employer] SAL[employer]. MAX. ASSIST WITH SLIDING BOARD. BED IN LOWEST POSITION AND CALL LIGHT WITHIN REACH.
--- NOTE | 2016-09-04 23:35 | NUR ---
PT IN BED WITH HOB UP FOR COMFORT. EYES CLOSED. CHEST RISING AND FALLING. BED IN LOWEST POSITION AND CALL LIGHT WITHIN REACH.
[2016-09-04 23:52] VITALS: BP 98/59
--- NOTE | 2016-09-05 03:35 | NUR ---
PT IN BED WITH HOB UP FOR COMFORT. EYES CLOSED. RESPIRATIONS EVEN AND UNLABORED. BED IN LOWEST POSITION AND CALL LIGHT WITHIN REACH.
--- NOTE | 2016-09-05 03:45 | NUR ---
PATIENT AWAKE. PICKED UP A PILLOW HE HAD DROPPED AND RETRIEVED HIS CALL LIGHT, PLACING IT ON BEDSIDE TABLE WITHIN HIS REACH.
--- NOTE | 2016-09-05 06:53 | NUR ---
RESTING IN BED QUIETLY. CALL LIGHT IN REACH
[2016-09-05 07:45] VITALS: BP 96/57
--- NOTE | 2016-09-05 13:47 | NUR ---
SITTING IN W/C IN ROOM. DENIES NEEDS
--- NOTE | 2016-09-05 17:11 | NUR ---
SITTING UP IN W/C AT HIS REQUEST. DENIES NEEDS. CALL LIGHT IN REACH
--- NOTE | 2016-09-05 19:30 | NUR ---
PT SIT UP AND REST IN WHEELCHAIR.
--- NOTE | 2016-09-05 23:18 | NUR ---
CHANGE DRESSING: CLEAN WOUND WITH WOUND CLEANSER AND SECURE WITH MEPILEX.
[2016-09-05 23:37] VITALS: BP 107/58
--- NOTE | 2016-09-06 03:37 | NUR ---
REST QUIETLY IN BED,EYE CLOSE, BED LOW, CALL LIGHT WITHIN REACH.
--- NOTE | 2016-09-06 03:56 | NUR ---
PT RESTING QUIETLY, NO S/S OF ACUTE DISTRESS. RESPIRATIONS REGULAR AND UNLABORED.
[2016-09-06 07:53] VITALS: BP 98/61
--- NOTE | 2016-09-06 10:10 | NUR ---
RESTING QUIETLY IN BED. F/C PATENT AND DRAINING CLOUDY URINE. OXYGEN IN USE, DENIES NEEDS.
--- NOTE | 2016-09-06 13:56 | NUR ---
RESTING QUIETLY IN BED CALL LIGHT IN REACH
--- NOTE | 2016-09-06 17:57 | NUR ---
SITTING ON SIDE OF BED EATING SUPPER. DENIES NEEDS.
--- NOTE | 2016-09-06 19:15 | NUR ---
PT IN BED WITH HOB UP FOR COMFORT. ALERT & ORIENTED. BOBO CATH. NO IV. O2 @ 2L VIA N/C. [place]. MAX. ASSIST WITH SLIDING BOARD. MEPILEX ON COCCYX. BLE EDEMA. BED IN LOWEST POSITION AND CALL LIGHT WITHIN REACH.
--- NOTE | 2016-09-06 20:30 | NUR ---
PT. IN BED LYING ON HIS LEFT SIDE WITH EYES CLOSED AND RESP. EVEN. BOBO TO BSD WITHOUT ANY VISIBLE PROBLEMS. CALL LIGHT WITHIN REACH.
[2016-09-06 20:57] VITALS: BP 93/53
--- NOTE | 2016-09-07 00:30 | NUR ---
PT IN BED WITH HOB UP FOR COMFORT. EYES CLOSED. CHEST RISING AND FALLING. BED IN LOWEST POSITION AND CALL LIGHT WITHIN REACH.
--- NOTE | 2016-09-07 04:30 | NUR ---
RESTING QUIETLY. BED IN LOWEST POSITION AND CALL LIGHT WITHIN REACH.
[2016-09-07 07:01] LABS: BASOPHILS 0.1 % (0-2); EOSINOPHILS 0.6 % (0-7); IMMATURE GRANULOCYTES 0.3 % (0-5); MCH 30.1 pg (26.0-34.0); MCHC 31.3 g/dL (31.0-37.0); MCV 96.4 fL (80.0-100.0); MEAN PLATELET VOLUME 9.1 fL (7.4-10.4); MONOCYTES 8.9 % (2-11); NEUTROPHILS 72.1 % (40-80); PLATELET COUNT 306 10x3/uL (130-400); RBC 3.32 10x6/uL (4.20-6.10); RDW 14.4 % (11.5-14.5); WBC 7.2 10x3/uL (4.8-10.8)
[2016-09-07 07:12] LABS: CALC OSMOLALITY 279 mosm/kg (275-300); CALCIUM 8.1 mg/dL (8.5-10.1); CARBON DIOXIDE 30.8 mmol/L (21.0-32.0); CHLORIDE - SERUM 102 mmol/L (98-107); GLUCOSE 95 mg/dL (74-106); SODIUM 137 mmol/L (136-145); UREA NITROGEN 29 mg/dL (7-18); eGFR NON AFRICAN AMERICAN 75 mL/min (90-120)
--- NOTE | 2016-09-07 07:20 | NUR ---
SITTING UP IN BED RESTING QUIETLY. ALERT AND ORIENTED X2, REORIENTED TO TIME. PLEASANT AFFECT. O2 IN PLACE 2L VIA NASAL CANULA. BOBO PATENT NO S/SX OF INFECTION. CALL LIGHT IN REACH.
[2016-09-07 08:00] VITALS: BP 86/50
--- NOTE | 2016-09-07 09:20 | NUR ---
ASSISTED TO RESTROOM WITH MOD ASSIST. SITTING UP IN WHEELCHAIR CALL LIGHT IN REACH
--- NOTE | 2016-09-07 11:13 | NUR ---
SITTING OUT ON DECK VISITING WITH FAMILY.
--- NOTE | 2016-09-07 11:30 | NUR ---
IN GYM WITH PHYSICAL THERAPY.
--- NOTE | 2016-09-07 13:12 | NUR ---
SITTING UP IN WHEELCHAIR EATING LUNCH. O2 ON 2L VIA NASAL CANULA. DENIES PAIN. CALL LIGHT IN REACH.
--- NOTE | 2016-09-07 15:30 | NUR ---
SITTING IN W/C DRINKING COFFEE. DENIES PAIN. CALL LIGHT IN REACH.
--- NOTE | 2016-09-07 17:30 | NUR ---
SITTING UP IN W/C WATCHING TV. NO CONCERNS VOICED. DENIES PAIN. CALL LIGHT IN REACH.
--- NOTE | 2016-09-07 19:40 | NUR ---
PT RESTING IN BED. O2 IN PLACE. MEPILEX TO BUTOCK CDI. PT DENIES NEEDS. WCTM.
[2016-09-07 20:49] VITALS: BP 123/52
--- NOTE | 2016-09-07 22:45 | NUR ---
PT HS MEDS ADMINISTERED. PT CARMINE ROBERSON. CRISSY.
--- NOTE | 2016-09-08 02:30 | NUR ---
PT RESTING, EYES CLOSED. RR ARE EVEN AND UNLABORED. CL IN REACH. WCTM.
--- NOTE | 2016-09-08 07:30 | NUR ---
LYING IN BED ON RIGHT SIDE EYES CLOSED RESTING QUIETLY. BOBO PATENT AND BOBO CARE PERFORMED. EASILY AROUSED WITH STIMULI. CALL LIGHT IN REACH. OXYGEN 2L VIA NASAL CANULA.
[2016-09-08 08:00] VITALS: BP 115/48
--- NOTE | 2016-09-08 09:30 | NUR ---
SITTING UP ON SIDE OF BED DRINKING COFFEE AND LOOKING AT NEWSPAPER. NO CONCERNS VOICED. CALL LIGHT IN REACH
--- NOTE | 2016-09-08 11:15 | NUR ---
WITH OCCUPATIONAL THERAPY TOLERATING WELL.
--- NOTE | 2016-09-08 12:07 | NUR ---
SITTING UP IN CHAIR EATING LUNCH.CL IN [place].DENIES NEEDS.
--- NOTE | 2016-09-08 12:20 | NUR ---
PATIENT WS ADMITTED TO REHAB FROM ACUTE FLOOR. DISCHARGE PLANS ARE FOR PATIENT TO RETURN HOME. DR. GAN IS HIS PCP, HE ALSO USES [facility] ON [facility] FOR PHARMACY. PATIENT HAS O2 AND WHEELCHAIR AT HOME. WILL CONTINUE TO FOLLOW WITH PATIENT
--- NOTE | 2016-09-08 13:30 | NUR ---
LYING IN BED EYES CLOSED RESTING QUIELTY. RISE AND FALL OF CHEST. OXYGEN ON 2L VIAL NASAL CANULA. CALL LIGHT IN REACH.
--- NOTE | 2016-09-08 15:30 | NUR ---
SITTING UP IN CHAIR VISITING WITH FAMILY. NO CONCERNS VOICED. CALL LIGHT IN REACH.
--- NOTE | 2016-09-08 17:27 | NUR ---
SITTING UP IN WHEELCHAIR EATING DINNER. STILL ON 2L OXYGEN VIA NASAL CANULA. DENIES PAIN. CALL LIGHT IN REACH.
--- NOTE | 2016-09-08 19:00 | NUR ---
UP IN W/C BEDSIDE BED. NO C/O AT THIS TIME.
--- NOTE | 2016-09-08 21:40 | NUR ---
SITTING UP IN W/C RECEIVING R/T UPDRAFT. TOLD HIM I WILL RETURN WITH HS MEDS.
[2016-09-08 22:40] VITALS: BP 94/54
--- NOTE | 2016-09-08 22:40 | NUR ---
ASSESSMENT, VS, AND HS MEDS COMPLETE AFTER TRANSFERRING PATIENT INTO BED FROM W/C USING TOTAL ASSIST. CLEANSED PATIENT FROM TRACE SOFT BM AND APPLIED FRESH PULL-UP BRIEF. CHANGED OUT BOBO DRAINAGE BAG, MAINTIAINING STERILITY OF CATHETER-BAG CNNECTION, A PINHOLE LEAK HAD DEVELOPED AT THE BOTTOM OF REVERSE OF BAG DOWN BY THE DRAINAGE LINE CONNECTION TO BAG. EMPTIED 200ML CLEAR YELLOW URINE FROM OLD BAG. APPLIED NEW STATLOCK CATHETER ANCHOR TO RIGHT UPPER THIGH THE OLD ONE WAS PEELING OFF. BP 94/54. HELD HYTRIN 2MG DOSE FOR LOW BP.
--- NOTE | 2016-09-09 02:35 | NUR ---
RESTING QUIETLY IN BED ON RIGHT SIDE. NO APPARENT DISCOMFORT.
--- NOTE | 2016-09-09 04:40 | NUR ---
IN BED, EYES CLOSED. RESTING QUIETLY ON LEFT SIDE. RESPIRATIONS UNLABORED.
[2016-09-09 06:03] LABS: BASOPHILS 0.1 % (0-2); EOSINOPHILS 0.8 % (0-7); HEMATOCRIT 29.1 % (42.0-54.0); HEMOGLOBIN 9.5 g/dL (13.5-17.5); IMMATURE GRANULOCYTES 0.4 % (0-5); LYMPHOCYTES 22.2 % (15-50); MCH 31.1 pg (26.0-34.0); MCHC 32.6 g/dL (31.0-37.0); MCV 95.4 fL (80.0-100.0); MEAN PLATELET VOLUME 8.9 fL (7.4-10.4); MONOCYTES 8.7 % (2-11); NEUTROPHILS 67.8 % (40-80); PLATELET COUNT 277 10x3/uL (130-400); RBC 3.05 10x6/uL (4.20-6.10); RDW 14.6 % (11.5-14.5); WBC 7.1 10x3/uL (4.8-10.8)
--- NOTE | 2016-09-09 06:20 | NUR ---
GAVE PATIENT SCHEDULED PO PROTONIX. DENIES NEEDS.
--- NOTE | 2016-09-09 07:05 | NUR ---
RESTING QUIETLY IN BED CALL LIGHT IN REACH
[2016-09-09 07:12] LABS: CARBON DIOXIDE 30.4 mmol/L (21.0-32.0); CHLORIDE - SERUM 102 mmol/L (98-107); CREATININE - SERUM 0.9 mg/dL (0.6-1.3); GLUCOSE 95 mg/dL (74-106); POTASSIUM - SERUM 3.9 mmol/L (3.5-5.1); SODIUM 138 mmol/L (136-145); eGFR NON AFRICAN AMERICAN 84 mL/min (90-120)
[2016-09-09 07:15] LABS: CALC OSMOLALITY 284 mosm/kg (275-300); CALCIUM 8.2 mg/dL (8.5-10.1); UREA NITROGEN 37 mg/dL (7-18)
[2016-09-09 08:00] VITALS: BP 88/49
--- NOTE | 2016-09-09 09:30 | NUR ---
PATIENT SITTING UP ON THE EDGE OF THE BED TO EAT BREAKFAST. CALL LIGHT WITHIN REACH. PATIENT IS ALERT/ORIENT X4.
--- NOTE | 2016-09-09 12:50 | NUR ---
CARE TEAM MEETING: PATIENT TENATIVE DISCHARGE DATE IS 09/16/16. WILL CONTINUE TO FOLLOW WITH PATIENT UNTIL DISCHARGED
--- NOTE | 2016-09-09 13:31 | NUR ---
PATIENT WORKING WITH PHYISCAL THERAPIST IN REHAB ROOM. VOICES NO PAIN/DISC AT THIS TIME
[2016-09-09 18:52] VITALS: BP 96/49
--- NOTE | 2016-09-09 20:40 | NUR ---
PT REST IN WHEELCHAIR, STATE LIKE TO SIT UP IN WHEELCHAIR FOR A LITTLE WHILE, AND THEN GO TO BED.
--- NOTE | 2016-09-09 21:05 | NUR ---
PT BP LOW,96/49, HELD HYTRIN.
--- NOTE | 2016-09-09 21:20 | NUR ---
TRANSFER PT FROM WHEELCHAIR TO BED.
--- NOTE | 2016-09-10 02:25 | NUR ---
RESTING QUIETLY IN BED, EYES CLOSED.
--- NOTE | 2016-09-10 08:00 | NUR ---
SITTING ON SIDE OF BED EATING LUNCH. DENIES NEEDS.
--- NOTE | 2016-09-10 12:12 | NUR ---
SITTING UP EATING LUNCH IN ROOM. BLE EDEMA NOTED. PT HAS CHRONIC F/C. WEARING OXYGEN. CALL LIGHT IN REACH
--- NOTE | 2016-09-10 12:37 | NUR ---
Nutrition Follow Up: Pt is eating 97% meal avg on an AHA diet. He is receiving Ensure BID. No new wt to assess. +BM 09/09/16. Labs reviewed. Meds noted including Lasix. Rec continue current diet, supplement regimen. RD following.
[2016-09-10 13:20] VITALS: BP 97/47
--- NOTE | 2016-09-10 18:03 | NUR ---
SITTING UP IN W/C EATING SUPPER. DENIES NEEDS
--- NOTE | 2016-09-10 18:35 | NUR ---
RESTING QUIETLY IN BED. CALL LIGHT IN REACH
--- NOTE | 2016-09-10 19:30 | NUR ---
PT UP IN W/C. WATCHING TV. ALERT & ORIENTED. BOBO CATH. LOWER EXT. EDEMA. MAX. ASSIST. MEPILEX TO BUTTOCKS. SKIN TEAR TO PENIS. 02 @ 2L VIA N/C. NO IV. CALL LIGHT WITHIN REACH.
[2016-09-10 19:43] VITALS: BP 91/52
--- NOTE | 2016-09-10 23:30 | NUR ---
PT IN BED WITH HOB UP FOR COMFORT. EYES CLOSED. CHEST RISING AND FALLING. BED IN LOWEST POSITION AND CALL LIGHT WITHIN REACH.
--- NOTE | 2016-09-11 03:20 | NUR ---
PT RESTING QUIETLY ON BACK, SEMI FOLWER, RESPIRATIONS REGULAR AND UNLABORED, NO S/S OF ACUTE DISTRESS.
[2016-09-11 06:36] LABS: BASOPHILS 0.3 % (0-2); EOSINOPHILS 1.4 % (0-7); HEMATOCRIT 28.3 % (42.0-54.0); IMMATURE GRANULOCYTES 0.3 % (0-5); LYMPHOCYTES 20.9 % (15-50); MCH 30.5 pg (26.0-34.0); MCHC 31.8 g/dL (31.0-37.0); MCV 95.9 fL (80.0-100.0); MEAN PLATELET VOLUME 9.2 fL (7.4-10.4); MONOCYTES 8.9 % (2-11); NEUTROPHILS 68.2 % (40-80); PLATELET COUNT 299 10x3/uL (130-400); RBC 2.95 10x6/uL (4.20-6.10); RDW 14.8 % (11.5-14.5); WBC 7.1 10x3/uL (4.8-10.8)
[2016-09-11 06:42] LABS: ANION GAP 7.5 mmol/L (8-16); CALCIUM 8.2 mg/dL (8.5-10.1); CARBON DIOXIDE 31.7 mmol/L (21.0-32.0); CREATININE - SERUM 1.1 mg/dL (0.6-1.3); POTASSIUM - SERUM 4.2 mmol/L (3.5-5.1)
[2016-09-11 07:53] VITALS: BP 94/52
--- NOTE | 2016-09-11 08:03 | NUR ---
SITTING UP IN W/C EATING BREAKFAST. F/C PATENT AND DRAINING CLOUDY URINE.
--- NOTE | 2016-09-11 12:01 | NUR ---
SITTING IN W/C EATING LUNCH
--- NOTE | 2016-09-11 14:20 | NUR ---
Wound care reassessment; Mepilex sacral dressing in place on bottom. Wound on right buttock has improved and skin tear at gluteal fold is unchanged. Pt turns himself in bed and does so frequently. He has a cushion for his wheelchair to use when doing therapy. Wound care will continue monitoring.
--- NOTE | 2016-09-11 15:53 | NUR ---
SITTING IN W/C IN ROOM. F/C PATENT. DENIES PAIN.
--- NOTE | 2016-09-11 18:30 | NUR ---
SITTING UP IN CHAIR IN ROOM. F/C DRAINING CLOUDY URINE
[2016-09-11 18:38] VITALS: BP 98/49
--- NOTE | 2016-09-11 20:22 | NUR ---
REC'D PATIENT SITTING UP IN CHAIR. ALERT AND ORIENTED X4. DENIED PAIN AT THIS TIME. DENIED FURTHER NEEDS AT THIS TIME. INSTRUCTED TO CALL IF NEEDED ANYTHING. PLACED IN BED WITH VIRAJ TEJEDA. BED LOW, LOCKED CALL LIGHT IN REACH.
--- NOTE | 2016-09-11 22:48 | NUR ---
PT. IN BED WITH HOB UP FOR COMFORT LYING ON HIS RIGHT SIDE WITH EYES CLOSED AND RESP. EVEN. BOBO TO BSD WITHOUT PROBLEMS AND PT. HAS HIS CALL LIGHT WITHIN REACH.
[2016-09-12 00:06] VITALS: BP 98/49
--- NOTE | 2016-09-12 02:48 | NUR ---
PT IN BED WITH HOB UP FOR COMFORT. EYES CLOSED. CHEST RISING AND FALLING. BED IN LOWEST POSITION AND CALL LIGHT WITHIN REACH.
--- NOTE | 2016-09-12 03:34 | NUR ---
PT IN BED WITH HOB UP FOR COMFORT. EYES CLOSED. RESPIRATIONS EVEN & UNLABORED. BED IN LOWEST POSITION AND CALL LIGHT WITHIN REACH.
--- NOTE | 2016-09-12 07:30 | NUR ---
LYING IN BED EYES OPEN RESTING QUIETLY. PLEASANT AFFECT. ALERT AND ORIENTED TO PERSON, PLACE, SITUATION. REORIENTED TO TIME. DENIES NEEDS AT THIS TIME. CALL LIGHT IN REACH. WILL CONTINUE TO MONITOR.
[2016-09-12 08:00] VITALS: BP 101/60
--- NOTE | 2016-09-12 08:41 | NUR ---
SITTING UP ON SIDE OF BED WITH BEDSIDE TABLE.CL IN REACH.
--- NOTE | 2016-09-12 09:44 | NUR ---
SITTING UP IN BED WATCHING TV, NAD NOTED. DENIES ANY NEEDS. CALL LIGHT IN REACH. WILL CONTINUE TO MONITOR.
--- NOTE | 2016-09-12 11:30 | NUR ---
LYING ON RIGHT SIDE IN BED, NAD NOTED. DENIES ANY NEEDS. CALL LIGHT IN REACH. WILL CONTINUE TO MONITOR.
--- NOTE | 2016-09-12 13:30 | NUR ---
LYING IN BED LEFT SIDE EYES CLOSED RESTING QUIETLY. EASILY AROUSED WITH VERBAL STIMULI. CALL LIGHT IN REACH. WILL CONTINUE TO MONITOR
--- NOTE | 2016-09-12 15:30 | NUR ---
SITTING UP ON SIDE OF BED DRINKING COFFEE, NAD NOTED. DENIES NEEDS. CALL LIGHT IN REACH. WILL CONTINUE TO MONITOR.
--- NOTE | 2016-09-12 17:39 | NUR ---
SITTING UP ON SIDE OF BED EATING DINNER, NAD NOTED. DENIES ANY PAIN OR NEEDS AT THIS TIME. CALL LIGHT IN REACH. WILL CONTINUE TO MONITOR.
--- NOTE | 2016-09-12 19:30 | NUR ---
REMOVED BLANKET FROM PATIENT'S COVERS LEAVING ONLY THE TOP SHEET, PER HIS REQUEST. SAYS CANNOT TURN IN BED WITHOUT GETTING TANGLED IN BLANKET. SAYS HE WILL BE WARM ENOUGH WITHOUT IT. WE'LL SEE PATIENT FREQUENTLY C/O BEING COLD IN BED AT NIGHT. JIHAN SIEGEL PATENT TO BSD BAG. CONTINUES ON O2 @ 2L PER N/C. ASSISTED HIM TO REPOSITION HIGHER UP IN BED FOR BACK COMFORT.
[2016-09-12 21:45] VITALS: BP 91/51
--- NOTE | 2016-09-12 21:45 | NUR ---
ASSESSMENT AND HS MEDS COMPLETE. HELD SCHEDULED HYTRIN 2MG PO FOR LOW BP OF 91/51. PATIENT DENIES CURRENT NEEDS.
--- NOTE | 2016-09-13 00:10 | NUR ---
RESTING IN BED ON RIGHT SIDE. HOB UP 10 DEGREES. NO DISTRESS NOTED.
--- NOTE | 2016-09-13 01:50 | NUR ---
IN BED, EYES CLOSED AFTER HE WAS REPOSITIONED @ 0100 HRS PER HIS REQUEST. LYING ON RIGHT SIDE.
--- NOTE | 2016-09-13 04:30 | NUR ---
PATIENT AWAKE. DENIES NEEDS. EMPTIED 600ML FROM BOBO DRAINAGE BAG.
--- NOTE | 2016-09-13 04:30 | NUR ---
PATIENT AWAKE. EMPTIED 600ML FROM BEDSIDE URINAL. DENIES NEEDS.
--- NOTE | 2016-09-13 06:00 | NUR ---
AWOKE PATIENT FOR SCHEDULED PROTONIX PO. ASSISTED HIM TO REPOSITION HIGHER IN BED FOR COMFORT. DENIES CURRENT NEEDS.
[2016-09-13 07:30] VITALS: BP 121/74
--- NOTE | 2016-09-13 07:33 | NUR ---
LYING IN BED ON RIGHT SIDE EYES OPEN, NAD NOTED. OXYGEN ON 2L VIA NASAL CANULA. ALERT AND ORIENTED TO PERSON, PLACE, AND SITUATION. REORIENTED TO TIME. DENIES ANY NEEDS. CALL LIGHT IN REACH. WILL CONTINUE TO MONITOR.
--- NOTE | 2016-09-13 07:45 | NUR ---
RESTING QUIETLY.CL IN REACH
--- NOTE | 2016-09-13 10:10 | NUR ---
LYING IN BED RIGHT SIDE WATCHING TV QUIETLY, NAD NOTED. DENIES PAIN. CALL LIGHT IN REACH. WILL CONTINUE TO MONITOR.
--- NOTE | 2016-09-13 11:33 | NUR ---
LYING ON LEFT SIDE EYES CLOSED RESTING QUIELTY. RISE AND FALL OF CHEST. OXYGEN ON 2L VIA NASAL CANULA. CALL LIGHT IN REACH. WILL CONTINUE TO MONITOR.
--- NOTE | 2016-09-13 14:15 | NUR ---
ASSISTED TO RESTROOM MOD ASSIST. LARGE BM FIRM LITE BROWN. ASSISTED BACK TO BED. CALL LIGHT IN REACH. OXYGEN ON 2L VIA NASAL CANULA. WILL CONTINUE TO MONITOR
--- NOTE | 2016-09-13 16:05 | NUR ---
LYING IN BED ON RIGHT SIDE RESTING QUIETLY. BOBO FREE OF KINKS AND PATENT. CALL LIGHT IN REACH. WILL CONTINUE TO MONITOR
[2016-09-13 19:35] VITALS: BP 104/59
--- NOTE | 2016-09-13 19:35 | NUR ---
REPOSITIONED PATIENT HIGHER IN BED FOR COMFORT. VS AND ASSESSMENT COMPLETE. DENIES NEEDS.
--- NOTE | 2016-09-13 22:20 | NUR ---
RESTING QUIETLY ON RIGHT SIDE. NO DISTRESS NOTED.
--- NOTE | 2016-09-14 00:15 | NUR ---
PATIENT AWAKE. REPOSTIONED HIM HIGHER UP IN BED FOR COMFORT. DENIES CURRENT NEEDS.
--- NOTE | 2016-09-14 02:15 | NUR ---
IN BED, AWAKE. DENIES NEEDS.
--- NOTE | 2016-09-14 04:45 | NUR ---
CURRENTLY RESTING QUIETLY, EYES CLOSED. HAS BEEN AWAKE FREQUENTLY TONIGHT AND DISORIENTED TO TIME, PLACE AND SITUATION OF 314 WHEN I LAST SPOKE WITH HIM.
[2016-09-14 05:48] LABS: BASOPHILS 0.1 % (0-2); EOSINOPHILS 1.5 % (0-7); HEMATOCRIT 30.5 % (42.0-54.0); HEMOGLOBIN 9.7 g/dL (13.5-17.5); IMMATURE GRANULOCYTES 0.3 % (0-5); LYMPHOCYTES 16.9 % (15-50); MCH 30.5 pg (26.0-34.0); MCHC 31.8 g/dL (31.0-37.0); MCV 95.9 fL (80.0-100.0); MEAN PLATELET VOLUME 9.3 fL (7.4-10.4); MONOCYTES 7.9 % (2-11); NEUTROPHILS 73.3 % (40-80); PLATELET COUNT 303 10x3/uL (130-400); RBC 3.18 10x6/uL (4.20-6.10); RDW 14.9 % (11.5-14.5); WBC 7.8 10x3/uL (4.8-10.8)
[2016-09-14 06:05] LABS: CALC OSMOLALITY 286 mosm/kg (275-300); CALCIUM 8.2 mg/dL (8.5-10.1); CARBON DIOXIDE 28.6 mmol/L (21.0-32.0); CHLORIDE - SERUM 105 mmol/L (98-107); GLUCOSE 90 mg/dL (74-106); POTASSIUM - SERUM 4.2 mmol/L (3.5-5.1); SODIUM 140 mmol/L (136-145); UREA NITROGEN 35 mg/dL (7-18); eGFR NON AFRICAN AMERICAN 75 mL/min (90-120)
--- NOTE | 2016-09-14 07:19 | NUR ---
LYING IN BED ON LEFT SIDE EYES CLOSED RESTING QUIETLY. OXYGEN ON 2L VIA NASAL CANULA. CALL LIGHT IN REACH. WILL CONTINUE TO MONITOR.
[2016-09-14 09:13] VITALS: BP 149/82
--- NOTE | 2016-09-14 09:34 | NUR ---
SITTING UP ON SIDE OF BED DRINKING COFFEE, NAD NOTED. DENIES NEEDS. CALL LIGHT IN REACH. WILL CONTINUE TO MONITOR.
--- NOTE | 2016-09-14 11:44 | NUR ---
SITTING UP IN WHEELCHAIR WATCHING TV. DENIES NEEDS. CALL LIGHT IN REACH. WILL CONTINUE TO MONITOR
--- NOTE | 2016-09-14 17:31 | NUR ---
SITTING UP ON SIDE OF BED EATING ICE CREAM. DENIES ANY OTHER NEEDS. WILL CONTINUE TO MONITOR. CALL LIGHT IN REACH
--- NOTE | 2016-09-14 19:00 | NUR ---
UP IN C/E AT BEDSIDE. DENIES NEEDS.
--- NOTE | 2016-09-14 19:19 | NUR ---
RESTING QUIETLY IN BED. CALL LIGHT IN REACH
[2016-09-14 20:07] VITALS: BP 127/55
--- NOTE | 2016-09-14 22:00 | NUR ---
ASSESSMENT COMPLETE. GAVE PATIENT SCHEDULED HYTRIN PO.
--- NOTE | 2016-09-15 00:10 | NUR ---
RESTING QUEITLY IN BED ON RIGHT SIDE. EYES CLOSED. NO DISTRESS NOTED.
--- NOTE | 2016-09-15 01:50 | NUR ---
RESTING QUIETLY ON RIGHT SIDE. HOB UP 20 DEGREES. CONTINUES ON O2 @ 2L PER N/C.
--- NOTE | 2016-09-15 04:15 | NUR ---
PATIENT IN BED, RESTING QUIETLY, EYES CLOSED. RESPIRATIONS UNLABORED.
--- NOTE | 2016-09-15 06:30 | NUR ---
RESTING IN BED, EYES CLOSED.
--- NOTE | 2016-09-15 07:16 | NUR ---
RESTING QUIETLY IN BED WITH EYES CLOSED. CALL LIGHT IN REACH
--- NOTE | 2016-09-15 07:39 | NUR ---
SITTING UP ON SIDE OF BED EATING BREAKFAST. BOBO FREE OF KINKS AND PATENT. DENIES ANY NEEDS. ALERT AND ORIENTED X3. CALL LIGHT IN REACH. WILL CONTINUE TO MONITOR.
[2016-09-15 08:50] VITALS: BP 132/32
[2016-09-15] MEDS ORDERED: LASIX20 MG PO (09:20)
--- NOTE | 2016-09-15 09:40 | NUR ---
SITTING UP IN WHEELCHAIR IN ROOM INTERACTING WITH PHILLIP FROM PHYSICAL THERAPY. PT IS EMOTIONAL TODAY REALIZING HE'S GOING HOME TOMORROW TO HIS FAMILY, HE IS CONCERNED ABOUT HOW THEY WILL TAKE CARE OF HIM. STATES HE FEELS "USELESS NOW THAT HE IS NOT PHYSICALLY ABLE TO TAKE WALKS WITH HIS FAMILY OR DO THINGS FOR THEM" SPOKE TO PT ON HOW HE COULD CONTRIBUTE IN OTHER WAYS AND STILL FEEL NEEDED. PT VERBALIZED UNDERSTANDING AND STATES "I DID NOT THINK OF IT THAT WAY" WILL CONTINUE TO MONITOR EMOTIONAL STATUS TODAY. CALL LIGHT IN REACH.
--- NOTE | 2016-09-15 17:34 | NUR ---
SITTING UP ON SIDE OF BED EATING DINNER AND VISITING WITH ROOM MATE. SEEMS TO BE IN BETTER SPIRITS, SMILING AND LAUGHING WITH ROOMMATE AND FACULTY. DENIES ANY PAIN. WILL CONTINUE TO MONITOR.
--- NOTE | 2016-09-15 19:00 | NUR ---
IN BED, AWAKE. NO COMPLAINTS AT THIS TIME.
[2016-09-15 21:45] VITALS: BP 114/57
--- NOTE | 2016-09-15 21:45 | NUR ---
ASSESSMENT COMPLETED. DENIES NEEDS. REPOSITIONED HIM HIGHER IN BED FOR COMFORT. TOOK SCHEDULED HYTRIN.
--- NOTE | 2016-09-15 22:30 | NUR ---
RESTING QUIETLY ON RIGHT SIDE. NO DISTRESS NOTED.
--- NOTE | 2016-09-16 00:35 | NUR ---
IN BED, SUPINE. RESTING QUIETLY. CONTINUES ON O2 @ 2L PER N/C.
--- NOTE | 2016-09-16 02:10 | NUR ---
RESTING QUIETLY, EYES CLOSED. APPEARS COMFORTABLE.
--- NOTE | 2016-09-16 03:45 | NUR ---
IN BED, AWAKE. PEDALING HIS LEGS IN THE AIR, EXERCISING. DENIES NEEDS.
--- NOTE | 2016-09-16 05:45 | NUR ---
GAVE PATIENT SCHEDULED PO PROTONIX. EMPTIED 800ML FROM BOBO DRAINAGE BAG.
[2016-09-16 06:55] LABS: BASOPHILS 0.3 % (0-2); EOSINOPHILS 1.6 % (0-7); HEMATOCRIT 30.4 % (42.0-54.0); HEMOGLOBIN 9.7 g/dL (13.5-17.5); IMMATURE GRANULOCYTES 0.1 % (0-5); LYMPHOCYTES 20.4 % (15-50); MCH 30.6 pg (26.0-34.0); MCHC 31.9 g/dL (31.0-37.0); MCV 95.9 fL (80.0-100.0); MEAN PLATELET VOLUME 9.6 fL (7.4-10.4); NEUTROPHILS 69.6 % (40-80); PLATELET COUNT 271 10x3/uL (130-400); RBC 3.17 10x6/uL (4.20-6.10); RDW 15.1 % (11.5-14.5); WBC 6.8 10x3/uL (4.8-10.8)
[2016-09-16 07:00] LABS: CALC OSMOLALITY 283 mosm/kg (275-300); CALCIUM 8.2 mg/dL (8.5-10.1); CARBON DIOXIDE 28.9 mmol/L (21.0-32.0); CHLORIDE - SERUM 106 mmol/L (98-107); GLUCOSE 86 mg/dL (74-106); SODIUM 140 mmol/L (136-145); UREA NITROGEN 30 mg/dL (7-18); eGFR NON AFRICAN AMERICAN 75 mL/min (90-120)
--- NOTE | 2016-09-16 08:00 | NUR ---
SHIFT ASSMT COMPLETED.WILL HOLD DC TODAY, PLAN FOR DC HOME TOMARROW.
[2016-09-16 08:09] VITALS: BP 104/63
--- NOTE | 2016-09-16 12:00 | NUR ---
eating lunch.cl in reach.
--- NOTE | 2016-09-16 16:00 | NUR ---
resting quietly.cl in reach.
[2016-09-16 19:00] VITALS: BP 98/52
--- NOTE | 2016-09-16 19:30 | NUR ---
PT. SITTING ON SIDE OF BED VISITING WITH ANOTHER NURSE. ASSESSMENT COMPLETED. NO VOICED NEEDS AND HIS CALL LIGHT IS WITHIN REACH. O2 ON AT 2L/MIN VIA N/C WITHOUT ANY S/S DISTRESS OBSERVED.
--- NOTE | 2016-09-16 23:25 | NUR ---
PT. IN BED LYING ON HIS RIGHT SIDE WITH EYES CLOSED AND RESP. EVEN. BOBO TO BSD WITHOUT PROBLEMS. CALL LIGHT WITHIN REACH.
--- NOTE | 2016-09-17 03:20 | NUR ---
PT. IN BED WITH HOB UP FOR COMFORT AND CONTINUES TO LIE ON HIS RIGHT SIDE. EYES CLOSED AND RESP. EVEN. BOBO TO BSD WITHOUT PROBLEMS. CALL LIGHT WITHIN REACH.
--- NOTE | 2016-09-17 06:12 | NUR ---
PT. AWAKENS EASILY FOR AM MEDICATIONS AND WANTS TO GO BACK TO SLEEP BEFORE BREAKFAST. PT. ALSO REPORTS HIS SON-IN-LAW WILL BE PICKING HIM UP AROUND 0900 THIS MORNING HE IS BEING DISCHARGE. CALL LIGHT WITHIN REACH AND HIS BOBO IS TO BSD WITHOUT PROBLEMS. HAD TO REMIND PT. TO REPLACE HIS O2 IT HAS COME OFF DURING THE NIGHT.
--- NOTE | 2016-09-17 08:00 | NUR ---
UP TO SIDE OF BED FOR MEAL.BREAKFAST GIVEN.
[2016-09-17 08:36] VITALS: BP 111/63
--- NOTE | 2016-09-17 09:20 | NUR ---
patient discharging home today with family. [facility] will resume care of patient at home. no new DME needed at this time. Dr. Tejada 09/25/16 @ 11:00. patient choice form for home health and [facility] form signed, explained and filed in chart. orders have been faxed with conformation recieved
--- NOTE | 2016-09-17 09:30 | NUR ---
FC 18FR CHANGED OUT.IMMEDIATE URINE FLOW NOTED.BALLOON INFLATED;SECURED IN PLACE WITH STAT LOCK.
--- NOTE | 2016-09-17 10:30 | NUR ---
REVIEWED HOME CARE WITH PT AND SON.MEDS CALLED INTO [facility] [address].EQUIPMENT TO BE DELIVERED TO HOME FROM [facility].DISCHARGED IN STABLE CONDITION.
--- NOTE | 2016-09-17 11:25 | NUR ---
TAKEN TO VEHICLE/WC.CL IN REACH.
--- NOTE | 2016-09-17 12:00 | NUR ---
WOUND CARE REASSESSMENT: STAGE 2 ON RIGHT BUTTOCK IS HEALING. SKIN TEAR ON SACRAL REGION (GLUTEAL CLEFT) IS HEALING. BOTH AREAS ARE BEING PROTECTED WITH MEPILEX SACRAL DRESSING. CALMOSEPTINE CREAM IS BEING APPLIED TO PENIS SKIN TEAR NEEDED TO PROTECT FROM MOISTURE AND IRRITATION. WOUND CARE CONTINUES TO FOLLOW.
== END 2016-09-17 11:25 | disposition home health service (06) | DRG 292 ==
LOC: D.REHAB 16:50
PROVIDERS: ADMIT Emergency Medicine
DX: I11.0 Hypertensive heart disease with heart failure (principal); N39.0 Urinary tract infection, site not specified; G72.89 Other specified myopathies; I50.9 Heart failure, unspecified; R60.9 Edema, unspecified; N40.0 Benign prostatic hyperplasia without lower urinary tract symptoms; I89.0 Lymphedema, not elsewhere classified; J44.9 Chronic obstructive pulmonary disease, unspecified; F03.90 Unspecified dementia, unspecified severity, without behavioral disturbance, psychotic disturbance, mood disturbance, and anxiety; R19.09 Other intra-abdominal and pelvic swelling, mass and lump

== ENCOUNTER 2016-10-27 12:49 | Inpatient (IN) | payer MEDICARE, OTHER ==
[~2016-10-27] VITALS: Ht 185.4 cm; Wt 97.0 kg
[2016-10-27 13:42] LABS: AMORPHOUS SEDIMENT >1+ /lpf (NONE SEEN); APPEARANCE HAZY (CLEAR); BACTERIA MODERATE /hpf (NONE SEEN); BILIRUBIN NEGATIVE (NEGATIVE); CALCIUM OXALATE CRYSTALS 0-5 /hpf (NONE SEEN); COLOR PINK (YELLOW); EPITHELIAL CELLS 0-5 /hpf (0-5); GLUCOSE NEGATIVE (NEGATIVE); KETONE NEGATIVE (NEGATIVE); LEUKOCYTE ESTERASE TRACE (NEGATIVE); NITRITE POSITIVE (NEGATIVE); PROTEIN NEGATIVE (NEGATIVE); RED CELLS - URINE OCC /hpf (0-5); SPECIFIC GRAVITY 1.005 (1.005-1.020); UROBILINOGEN NORMAL (NORMAL); WHITE CELLS - URINE 0-5 /hpf (0-5); YEAST RARE /hpf (NONE SEEN)
[2016-10-27 13:45] LABS: UDS - AMPHET NEGATIVE QUAL (NEGATIVE); UDS - BARB NEGATIVE QUAL (NEGATIVE); UDS - BENZO NEGATIVE QUAL (NEGATIVE); UDS - COCAINE NEGATIVE QUAL (NEGATIVE); UDS - METH NEGATIVE QUAL (NEGATIVE); UDS - OPIATE NEGATIVE QUAL (NEGATIVE); UDS - PCP NEGATIVE QUAL (NEGATIVE); UDS - THC NEGATIVE QUAL (NEGATIVE)
[2016-10-27 14:19] LABS: BASOPHILS 0.1 % (0-2); EOSINOPHILS 0 % (0-7); HEMATOCRIT 35.9 % (42.0-54.0); HEMOGLOBIN 11.4 g/dL (13.5-17.5); IMMATURE GRANULOCYTES 0.3 % (0-5); LYMPHOCYTES 5.6 % (15-50); MCH 30.6 pg (26.0-34.0); MCHC 31.8 g/dL (31.0-37.0); MCV 96.5 fL (80.0-100.0); MEAN PLATELET VOLUME 9.8 fL (7.4-10.4); MONOCYTES 6.2 % (2-11); NEUTROPHILS 87.8 % (40-80); RBC 3.72 10x6/uL (4.20-6.10); RDW 14.7 % (11.5-14.5); WBC 12.8 10x3/uL (4.8-10.8)
[2016-10-27 14:21] LABS: PLATELET COUNT 186 10x3/uL (130-400)
[2016-10-27 14:28] LABS: INR 1.12 (0.85-1.17); PROTIME 14.3 SECONDS (11.6-15.0)
[2016-10-27 14:44] LABS: ALBUMIN 2.7 g/dL (3.4-5.0); ALKALINE PHOSPHATASE 98 U/L (46-116); ALT (SGPT) 14 U/L (10-68); BILIRUBIN - TOTAL 0.64 mg/dL (0.2-1.3); CALC OSMOLALITY 279 mosm/kg (275-300); CALCIUM 8.1 mg/dL (8.5-10.1); CARBON DIOXIDE 29.8 mmol/L (21.0-32.0); CHLORIDE - SERUM 102 mmol/L (98-107); CREATININE - SERUM 1.3 mg/dL (0.6-1.3); GLUCOSE 121 mg/dL (74-106); POTASSIUM - SERUM 4.4 mmol/L (3.5-5.1); PROTEIN - SERUM 6.7 g/dL (6.4-8.2); SODIUM 138 mmol/L (136-145); UREA NITROGEN 21 mg/dL (7-18); eGFR NON AFRICAN AMERICAN 55 mL/min (90-120)
[2016-10-27 14:56] LABS: CREATINE KINASE 311 UL (21-232); PRO BNP 11825 pg/mL (0-450)
[2016-10-27 15:03] LABS: CKMB 3.4 U/L (0.0-3.6)
--- NOTE | 2016-10-27 19:39 | NUR ---
REPORT FROM [facility] IN ER. WILL TRANSFER PT TO 2110 WHEN ROOM IS CLEAN IN ABOUT 10 MINS.
[2016-10-27 20:16] VITALS: BP 93/60
--- NOTE | 2016-10-27 20:29 | NUR ---
PT ARRIVED TO ROOM 2109. MARA WAS NOT IN HIS URETHRA WHEN HE GOT TO ROOM. NO BLEEDING FROM AREA, BUT PENIS AND SCROTUM ARE RED AND EXCORIATED. PT ASKS WHERE HE HIS. PT IS CONFUSED. A&O ONLY TO HIS NAME. PT DENIES ANY PAIN. DENIES ANY NEEDS. NO S/S OF DISTRESS. WILL CPOC
[2016-10-27 22:15] VITALS: BP 93/60
--- NOTE | 2016-10-27 22:16 | NUR ---
PT RESTING IN BED, STILL CONFUSED. MANOHAR THE NURSE PRACT. GAVE ORDER TO PUT NEW FOLLEY IN AND GET A NEW UA AFTERWARDS. WILL PUT NEW FOLLEY IN ONCE I FINISH MY MED PASS AND CLEAN PT UP. PT HAS NO S/S OF DISTRESS. DENIES ANY NEEDS. BED LOW AND CALL LIGHT WITHIN REACH. BED ALARM ON, WILL CPOC
[2016-10-28] VITALS (7 sets, daily range): BP systolic 88–129; BP diastolic 48–60; Ht 185.4 cm; Wt 97.0 kg
--- NOTE | 2016-10-28 01:53 | NUR ---
NEW FOLLEY, WOOD FLOOR LAYER MAINTAINED. VERY CONCENTRATED ORANGE/PINK URINE, SEDIMENT PRESENT. UA SENT DOWN TO LAB. PT ONLY COMPLAINS OF BEING COLD. PT TOLERATED FOLLEY. PT HAS A SORE ON HIS FORESKIN. PENIS AND SCROTUM RED AND EXCORIATED. MELINDA APPLIED AFTER GOOD SKIN CARE. PT NOW RESTING IN BED. BED LOW AND CALL LIGHT WITHIN REACH. NO S/S OF DISTRESS. RESPIRATIONS EVEN AND UNLABORED. WILL CPOC
[2016-10-28 03:02] LABS: APPEARANCE CLOUDY (CLEAR); BILIRUBIN NEGATIVE (NEGATIVE); COLOR ORANGE (YELLOW); GLUCOSE NEGATIVE (NEGATIVE); KETONE NEGATIVE (NEGATIVE); LEUKOCYTE ESTERASE 2+ (NEGATIVE); NITRITE POSITIVE (NEGATIVE); PROTEIN 2+ mg/dL (NEGATIVE)
[2016-10-28 03:04] LABS: BACTERIA MODERATE /hpf (NONE SEEN); EPITHELIAL CELLS 0-5 /hpf (0-5); MUCUS <1+ /lpf (NONE SEEN); WHITE CELLS - URINE >50 /hpf (0-5)
[2016-10-28] MEDS ORDERED: FERROUS SULFAT325 MG PO (04:05)
[2016-10-28] MEDS ORDERED: HYTRIN5 MG PO (04:06)
[2016-10-28] MEDS ORDERED: HYDROCODONE-APA1 TAB PO (04:07)
[2016-10-28] MEDS ORDERED: DIOVAN HCT 80-11 TAB PO (04:08)
[2016-10-28] MEDS ORDERED: ULTRAM50 MG PO (04:09)
--- NOTE | 2016-10-28 06:04 | NUR ---
PT ASLEEP. RESPIRATIONS EVEN AND UNLABORED. PT SNORING. NO S/S OF DISTRESS. BED LOW AND CALL LIGHT WITHIN REACH. BED ALARM ON. WILL CPOC
[2016-10-28 06:11] LABS: BASOPHILS 0.1 % (0-2); EOSINOPHILS 0.1 % (0-7); HEMATOCRIT 32.3 % (42.0-54.0); HEMOGLOBIN 10.3 g/dL (13.5-17.5); IMMATURE GRANULOCYTES 0.1 % (0-5); MCH 30.4 pg (26.0-34.0); MCHC 31.9 g/dL (31.0-37.0); MCV 95.3 fL (80.0-100.0); MEAN PLATELET VOLUME 9.3 fL (7.4-10.4); MONOCYTES 7.8 % (2-11); NEUTROPHILS 78.9 % (40-80); PLATELET COUNT 154 10x3/uL (130-400); RBC 3.39 10x6/uL (4.20-6.10); RDW 14.6 % (11.5-14.5)
[2016-10-28 06:24] LABS: WBC 7.3 10x3/uL (4.8-10.8)
[2016-10-28 06:34] LABS: ALBUMIN 2.2 g/dL (3.4-5.0); ALKALINE PHOSPHATASE 77 U/L (46-116); ALT (SGPT) 12 U/L (10-68); CALC OSMOLALITY 285 mosm/kg (275-300); CARBON DIOXIDE 29.5 mmol/L (21.0-32.0); CHLORIDE - SERUM 107 mmol/L (98-107); GLUCOSE 91 mg/dL (74-106); POTASSIUM - SERUM 4.2 mmol/L (3.5-5.1); PROTEIN - SERUM 5.9 g/dL (6.4-8.2); SODIUM 142 mmol/L (136-145); UREA NITROGEN 22 mg/dL (7-18); eGFR NON AFRICAN AMERICAN 75 mL/min (90-120)
--- NOTE | 2016-10-28 12:00 | NUR ---
ALERT AND ORIENTED X4. EKG COMPLETE. CARDIOLOGY CONSULTED FOR ELEVATED ENXYMES. DENIES ANY NEEDS. BED LOCKED AND LOW. CALL LIGHT IN REACH. TWO SIDERAILS UP. BED ALARM ON. CONTROLLED A-FIB 80bpm ON TELEMETRY.
[2016-10-28 12:48] LABS: CKMB 4.6 U/L (0.0-3.6)
[2016-10-28 12:49] LABS: CREATINE KINASE 421 UL (21-232)
[2016-10-28 12:50] LABS: TROPONIN-I 0.413 ng/mL (0.000-0.060)
--- NOTE | 2016-10-28 17:26 | NUR ---
ALERT AND ORIENTED X4. SITTING UP IN BED. LT FA IV INFILTRATED. DC LT FA IV TIP INTACT. RESITE IV 22G RT UPPER ARM SUCCESSFUL X1 ATTEMPT. RESUME IV FLUIDS AND ANTIBIOTICS ORDERED. DENIES ANY NEEDS. BED LOCKED AND LOW. CALL LIGHT IN REACH. TWO SIDERAILS UP. REFUSE SCDS. CONTROLLED A-FIB 77bpm ON TELEMETRY.
[2016-10-28 18:16] LABS: CKMB 3.1 U/L (0.0-3.6); CREATINE KINASE 344 UL (21-232)
[2016-10-28 18:28] LABS: TROPONIN-I 0.357 ng/mL (0.000-0.060)
--- NOTE | 2016-10-28 22:20 | NUR ---
PT IN BED WITH HOB UP FOR COMFORT. ALERT & ORIENTED. ELECTROLYTE PROTOCOL. TELEMETRY. CHRONIC BOBO. O2 @ 2L VIA N/C. RIGHT UPPER ARM NS RUNNING @ 65ML/HR. SCD'S. BED IN LOWEST POSITION AND CALL LIGHT WITHIN REACH.
[2016-10-29] VITALS: BP 100/51
[2016-10-29 00:10] LABS: CKMB 2.3 U/L (0.0-3.6); CREATINE KINASE 291 UL (21-232); TROPONIN-I 0.346 ng/mL (0.000-0.060)
[2016-10-29 04:00] VITALS: BP 98/53
--- NOTE | 2016-10-29 04:29 | NUR ---
EMBROIDERY SPECIALIST AT BEDSIDE TO OBTAIN VITALS, CALL LIGHT IN REACH. WILL CONTINUE TO MONITOR.
--- NOTE | 2016-10-29 05:08 | NUR ---
PT LYING IN BED. RESTING QUIETLY. BED IN LOWEST POSITION AND CALL LIGHT WITHIN REACH.
[2016-10-29 05:44] LABS: BASOPHILS 0.2 % (0-2); EOSINOPHILS 0.5 % (0-7); HEMATOCRIT 29.4 % (42.0-54.0); HEMOGLOBIN 9.8 g/dL (13.5-17.5); IMMATURE GRANULOCYTES 0.2 % (0-5); LYMPHOCYTES 16.8 % (15-50); MCH 31.6 pg (26.0-34.0); MCHC 33.3 g/dL (31.0-37.0); MCV 94.8 fL (80.0-100.0); MEAN PLATELET VOLUME 9.8 fL (7.4-10.4); NEUTROPHILS 74.3 % (40-80); PLATELET COUNT 164 10x3/uL (130-400); RDW 14.5 % (11.5-14.5); WBC 6.6 10x3/uL (4.8-10.8)
[2016-10-29 06:09] LABS: BILIRUBIN - TOTAL 0.5 mg/dL (0.2-1.3); CALCIUM 7.9 mg/dL (8.5-10.1); CARBON DIOXIDE 27.8 mmol/L (21.0-32.0); CREATININE - SERUM 1.1 mg/dL (0.6-1.3); POTASSIUM - SERUM 3.8 mmol/L (3.5-5.1); PROTEIN - SERUM 5.8 g/dL (6.4-8.2)
--- NOTE | 2016-10-29 07:51 | NUR ---
RESTING QUIETLY RESP UNLABORED NAD NOTED
[2016-10-29 08:23] VITALS: BP 104/62
--- NOTE | 2016-10-29 09:23 | NUR ---
ASSESSMENT COMPLETED.TELEMERTY SHOWS CAF 76. O2 AT 2 L/M PER NC.BOBO CATH TO BEDSIDE DRAINAGE. RT ARM IV WITH NS AT 65. PT IS BED BOUND DUE TO OLD STROKE. PT IS [place]. WEARS SCDS. REPOSITIOND. SR UP WITH CALL LIGHT IN REACH. WILL MONITOR
[2016-10-29 11:36] VITALS: BP 98/56
[2016-10-29 15:49] VITALS: BP 109/53
--- NOTE | 2016-10-29 17:30 | NUR ---
CONFUSED ABOUT HOW HE GOT HERE. PT REASURED. WILL MONITOR
[2016-10-29 19:00] VITALS: BP 124/66
--- NOTE | 2016-10-29 20:00 | NUR ---
CONFUSED, FORGETFUL. RESTING IN BED WITH NO DISTRESS. CAF PER TELEMETRY. O2 @ L/NC WITH NONLABORED RESPIRATIONSL IV TO [place] WITH NS @ 65ML/HR INFUSING. SEE SHIFT ASSESSMENT . CPOC.
[2016-10-30] VITALS: BP 98/60
--- NOTE | 2016-10-30 00:29 | NUR ---
PT VERY CONFUSED. TURNING CALL LIGHT ON AND C/O TV TURNING ON/OFF, YET HE IS THE ONE DOING IT. HE CANNOT SEEM TO UNDERSTAND THAT EVERYTIME HE PUSHES THE GREEN BUTTON, IT WILL EITHER TURN THE TV ON OR TURN IT OFF. IVF INFUSING. O2 @ 2L/NC INFUSING. BED ALARM ACTIVATED. CPOC.
--- NOTE | 2016-10-30 03:28 | NUR ---
TALKING LOUDLY IN HIS ROOM. DISORIENTED TO PERSON/PLACE/TIME/SITUATION. VERY PLEASANT. R AND D LAB TECHNICIAN'S NOW PROVIDING TOTAL BED BATH AND LINEN CHANGE. BED ALARM ACTIVATED AND CALL LIGHT IN REACH.
[2016-10-30 04:00] VITALS: BP 123/104
[2016-10-30 06:00] LABS: BASOPHILS 0.2 % (0-2); EOSINOPHILS 0.3 % (0-7); HEMATOCRIT 32.7 % (42.0-54.0); HEMOGLOBIN 10.3 g/dL (13.5-17.5); IMMATURE GRANULOCYTES 0.3 % (0-5); LYMPHOCYTES 16.1 % (15-50); MCH 30.1 pg (26.0-34.0); MCHC 31.5 g/dL (31.0-37.0); MCV 95.6 fL (80.0-100.0); MEAN PLATELET VOLUME 9.9 fL (7.4-10.4); MONOCYTES 7.4 % (2-11); NEUTROPHILS 75.7 % (40-80); PLATELET COUNT 163 10x3/uL (130-400); RBC 3.42 10x6/uL (4.20-6.10); RDW 14.4 % (11.5-14.5); WBC 6.2 10x3/uL (4.8-10.8)
[2016-10-30 06:06] LABS: ALBUMIN 2.1 g/dL (3.4-5.0); BILIRUBIN - TOTAL 0.59 mg/dL (0.2-1.3); CALCIUM 7.9 mg/dL (8.5-10.1); CARBON DIOXIDE 26.6 mmol/L (21.0-32.0); CREATININE - SERUM 1.1 mg/dL (0.6-1.3); POTASSIUM - SERUM 3.6 mmol/L (3.5-5.1); PROTEIN - SERUM 6.2 g/dL (6.4-8.2)
[2016-10-30 09:16] VITALS: BP 116/69
--- NOTE | 2016-10-30 09:41 | EC ---
PATIENT:MONY HALL DATE OF SERVICE: 10/27/16 SEX: M MEDICAL RECORD: [id number] DATE OF : [birth year] LOCATION:D.M2 D.211 AGE OF PATIENT: 89 ADMISSION DATE: 10/27/16 REFERRING PHYSICIAN: INTERPRETING PHYSICIAN: JESE FERRERA MD ECHOCARDIOGRAM REPORT ECHO CHARGES 4 ECHO COMPLETE CLINICAL DIAGNOSIS: ELEVATED TROPONIN ECHOCARDIOGRAPHIC MEASUREMENTS (adult normal given) AC root (d.<3.7cm) 3.3 cm LV Septum d (<1.2 cm> 1.8 cm Valve Excursion 1.3 cm LV Septum (systole) 2.1 cm Left Atria (s.<4.0cm> 3.5 cm LVPW d(<1.2cm) 1.6 cm RV (d.<2.3cm) 3.2 cm LVPW (sytole) 2.1 cm LV diastole(<5.6CM) 2.9 cm MV E-F(>70mm/sec) cm LV systole 1.6 cm LVOT Diameter 2.0 cm MV exc.(>10mm) cm Est.ejection fraction (50-75%) % Pericardial Effusion N DOPPLER: LVIT cm/sec A cm/sec E 82.0 cm/sec LA cm/sec RVSP 54.0 mmHg LVOT 116 cm/sec AOP1/2T m/s Asc. Ao 164 cm/sec RVOT 69.0 cm/sec RA cm/sec PA 92.0 cm/sec AV Gradient Peak 11.0 mmHg AV Mean 4.7 mmHg AV Area 1.8 cm MV Gradient Peak 4.2 mmHg MV Mean 1.2 mmHg MV Area cm COMMENTS: Latent Fingerprint Examiner: Ralph RIVERAOE Cone Operator: 1 Dr. Ferrera TAPE# PACS DATE OF SERVICE: 10/28/2016 Echocardiogram FINDINGS: 1. Left ventricular chamber size is within normal limits. Left ventricular systolic function is lower limits of normal at 45% to 50%. 2. Left atrium is within normal limits at 3.5 cm. Right atrium and right ventricle chamber sizes are mildly dilated. 3. Valvular structures have normal structure and motion. ECHOCARDIOGRAM REPORT [id number] MONY HALL 4. Doppler interrogation reveals moderate mitral regurgitation, moderate tricuspid regurgitation, no other valvular insufficiency or stenosis; however, pulmonary systolic pressure is elevated estimated at 54 mmHg. 5. No evidence of pericardial effusion or left ventricular thrombus. TRANSINT:[id number] Voice Confirmation ID: [id number] DOCUMENT ID: [id number] JESE FERRERA MD at 0941 CC: [id number] DICTATION DATE: 10/29/16 1034 TIMEKEEPER: 10/29/16 1310 ADM IN [facility] [address] [place] [address]
--- NOTE | 2016-10-30 09:57 | NUR ---
ASSESSMENT COMPLETED. CONFUSED AND TRIED TO THROW FOOD TRAY ON NURSE AND STENCIL MAKER. FAMITY CALLED TO SET WITH PT. IV TO RIGHT UPPER ARM. BOBO CATH TO BEDSIDE GRAVITY BAG. O2 AT 2 L/M PER NC. BED ALARM ON. WILL MONITOR SR UP WITH CALL LIGHT IN REACH
--- NOTE | 2016-10-30 10:24 | CN ---
PATIENT NAME:MONY HALL MEDICAL RECORD: [id number] : [birth year] LOCATION:DLorri D.2110 ADMIT DATE: 10/27/16 ACCOUNT: [id number] CONSULTING PHYSICIAN: BLANCA CORREA MD REFERRING PHYSICIAN: ELICEO COTTER MD DATE OF CONSULTATION: 10/29/2016 HISTORY OF PRESENT ILLNESS: An 89-year-old gentleman with a history of dementia. As reported, has chronic indwelling [place], has been at [facility], typically followed by verito Leos historian, admitted with confusion, fatigue and some cough, found to have elevated troponin. Currently, reports feeling well. No dyspnea, no pain. PAST MEDICAL HISTORY: Includes: 1. History of dementia. 2. BPH. 3. Hypertension. 4. Cerebrovascular disease. 5. Osteoarthritis, status post right hip replacement. ALLERGIES: None known. MEDICATIONS: Active scripts include Brovana 15 mcg b.i.d., DuoNeb 3 mL q.4, Hytrin 5 mg p.o. q.h.s., Diovan HCT 80/12.5 q. day, aspirin 81 q. day, tramadol 50 q.4 p.r.n., Lasix 40 q. day, potassium supplementation 20 mEq q. day. SOCIAL HISTORY: Unobtainable. REVIEW OF SYSTEMS: Unobtainable. PHYSICAL EXAMINATION: GENERAL: Pleasant gentleman, in no acute distress. VITAL SIGNS: Blood pressure 98/56, pulse 78 and regular. HEENT: Normocephalic, atraumatic. NECK: No JVD or bruit. HEART: Regular, II/ systolic ejection murmur. LUNGS: Actually good excursion. ABDOMEN: Soft, nontender. EXTREMITIES: Pulses are 1+, 1+ edema. IMPRESSION: Pneumonitis, elevated troponin. This may be a strain from underlying pneumonitis. EF via echocardiograph study shows EF of 40%-45%. I agree with ARB. Doubt would will be able tolerate beta-julia at this point. Continue aspirin and anti-platelets. Thank you for allowing us to participate in the care of this nice gentleman. TRANSINT:[id number] Voice Confirmation ID: [id number] DOCUMENT ID: [id number] CONSULT REPORT [id number] MONY HALL GREGORY A MD at 1024 CC: [id number] DICTATION DATE: 10/29/16 1541 SCIENCE AND OPERATIONS OFFICER: 10/29/16 192 ADM IN [place] [place] [id number] [place] [address]
[2016-10-30 11:56] VITALS: BP 126/70
[2016-10-30 15:48] VITALS: BP 105/62
--- NOTE | 2016-10-30 16:17 | NUR ---
REPOSITIONED IN BED FOR COMFORT. IV PATENT. BOBO INTACT. WILL CONT. PLAN OF CARE.
[2016-10-30 19:00] VITALS: BP 115/74
--- NOTE | 2016-10-30 22:20 | NUR ---
ASSESSMENT DONE. PT CONFUSED AND YELLING OUT. OFFERED PT FOOD AND DRINK AND WAS DECLINED. IV TO PT'S RIGHT UPPER ARE PATENT WITHOUT S/S OF INFILTRATION. BOBO CATH PATENT TO BSD, PATENT WITH STAW COLORED URINE. BED ALARM ON. DOOR TO ROOM LEFT OPEN. CALL LIGHT WITH IN REACH. SIDE RAILS UP X2. WILL CONT. TO MONITOR.
--- NOTE | 2016-10-30 22:51 | NUR ---
PT LAYING IN BED WITH HOB ELEVATED. PT YELLING OUT AND SAYING "THANK YOU AND THANKS FOR INVITING ME." PT HAS MOVED HIS LEGS AND THEY ARE HANGING OFF THE SIDE OF THE BED. NURSE REPOSITONED PT. IV AND BOBO CATH BOTH PATENT. PT IS CLEAN AND DRY. BED ALARM ON. CALL LIGHT WITH INREACH. OFFERED WATER. PT DECLINED.
--- NOTE | 2016-10-31 01:36 | NUR ---
NURSE ASSISTED PT WITH REPOSITIONING IN BED. PT REQUESTED HIS LIGHT BE LEFT ON. PT REQUESTED DR. GUTIERREZ AND SOMETHING TO EAT. NURSE PROVIDED PT WITH A CUP WITH DR. GUTIERREZ AND PUDDING. PT FED SELF. DENIES NEEDS AT THIS TIME. PT SEEMS TO BE LESS RESTLESS. CALL LIGHT WITH IN REACH. BED ALARM ON. PT'S DOOR LEFT OPEN. WILL CONT. TO MONITOR.
--- NOTE | 2016-10-31 02:44 | NUR ---
PT SLEEPING. APPEARS COMFORTABLE. NO DISTRESS NOTED. PT WAS GIVEN A BED BATH. CALL LIGHT WITH IN REACH. BED ALARM ON. WILL CONT. TO MONITOR.
--- NOTE | 2016-10-31 03:47 | NUR ---
PT SLEEPING. APPEARS COMFORTABLE. EYES CLOSED, RESP EVEN AND UNLABORED. NO DISTRESS NOTED. CALL LIGHT WITH IN REACH. BED ALARM ON. WILL CONT. TO MONITOR.
[2016-10-31 04:00] VITALS: BP 138/88
--- NOTE | 2016-10-31 06:00 | NUR ---
PT RESTING. APPEARS COMFORTABLE. EYES CLOSED. RESP EVEN AND UNLABORED. CALL LIGHT AND BED SIDE TABLE WITH IN REACH. BED ALARM ON. WILL CONT. TO MONITOR.
[2016-10-31 06:48] LABS: BASOPHILS 0.3 % (0-2); EOSINOPHILS 0.3 % (0-7); HEMATOCRIT 35.4 % (42.0-54.0); HEMOGLOBIN 11.2 g/dL (13.5-17.5); IMMATURE GRANULOCYTES 0.1 % (0-5); LYMPHOCYTES 14.5 % (15-50); MCH 30.1 pg (26.0-34.0); MCHC 31.6 g/dL (31.0-37.0); MCV 95.2 fL (80.0-100.0); MEAN PLATELET VOLUME 9.8 fL (7.4-10.4); MONOCYTES 9.5 % (2-11); NEUTROPHILS 75.3 % (40-80); PLATELET COUNT 160 10x3/uL (130-400); RBC 3.72 10x6/uL (4.20-6.10); RDW 14.5 % (11.5-14.5); WBC 6.7 10x3/uL (4.8-10.8)
[2016-10-31 07:14] LABS: ALBUMIN 2.2 g/dL (3.4-5.0); ALKALINE PHOSPHATASE 97 U/L (46-116); CALC OSMOLALITY 279 mosm/kg (275-300); CALCIUM 8.2 mg/dL (8.5-10.1); CARBON DIOXIDE 26.8 mmol/L (21.0-32.0); CHLORIDE - SERUM 106 mmol/L (98-107); GLUCOSE 103 mg/dL (74-106); POTASSIUM - SERUM 3.6 mmol/L (3.5-5.1); PROTEIN - SERUM 6.5 g/dL (6.4-8.2); SODIUM 140 mmol/L (136-145); UREA NITROGEN 15 mg/dL (7-18); eGFR NON AFRICAN AMERICAN 75 mL/min (90-120)
[2016-10-31 07:18] LABS: ALT (SGPT) 16 U/L (10-68)
--- NOTE | 2016-10-31 07:20 | NUR ---
AM ROUNDS- PT IN BED, STATES HE WANTS TO STAND UP, INFOMRED PT THAT HE IS TOO WEAK TO GET UP AND THAT I WAS GIVEN IN REPORT THAT HE IS BED BOUND. PT CONFUSED. RESP EVEN AND UNLABORED ON 3L NC, RT UPPER ARM IV SL. BED LOW AND WHEELS LOCKED, BEDSIDE RAILS X2, BED ALARM ON. CALL LIGHT IN REACH, NAD NOTED, WILL CONTINUE TO MONITOR.
--- NOTE | 2016-10-31 08:20 | NUR ---
AM MEDS GIVEN AT THIS TIME. PT EATING BREAKFAST, DENIES ANY NEEDS AT THIS TIME. CALL LIGHT IN REACH, BEDSIDE RAILS X3, BED ALARM ON, NAD NOTED, WILL CONTINUE TO MONITOR.
[2016-10-31 08:22] VITALS: BP 128/84
[2016-10-31 12:09] VITALS: BP 112/77
[2016-10-31 16:17] VITALS: BP 128/90
[2016-10-31 19:00] VITALS: BP 140/85
--- NOTE | 2016-10-31 19:41 | NUR ---
ASSESSMENT DONE. PT TALKING TO HIMSELF AND YELLING OUT AT THE PEOPLE WHO WALK BY HIS ROOM. NURSE ASSISTED PT WITH REPOSITIONING IN BED. BOBO CATH PATENT TO BSD BAG WITH DARK YELLOW URINE. IV TO RIGHT UPPER ARM PATENT, NO S/S OF INFILTRATION. OFFERED WATER AND SNACK. PT DECLINED AT THIS TIME. BED ALARM ON. CALL LIGHT WITH IN REACH. PT IS WEARING O2 VIA NC @ 3 LITERS. WILL CONT. TO MONITOR.
--- NOTE | 2016-10-31 20:53 | NUR ---
PT LAYING BED WITH HOB ELEVATED. PT IS HALLUCINATING AND TALKING TO PEOPLE WHO ARE NOT THERE. PT HAS PULLED IV OUT. WILL RE-SITE. OFFERED BED AYON, AND PT DECLINED. PT REFUSED TO ALLOW STAFF TO REPOSITION HIM BY YELLING OUT AND SAYING HE HURTS STATES " I AM FINE! DON'T WORRY ABOUT ME! STOP PULLING ON ME!" OFFERED WATER, PT DECLINED. OFFERED PUDDING OR ANOTHER SNACK, AND PT ALSO DECLINE. PT IS PULLING AT THIS GOWN AND BOBO CATH. BED ALARM IS ON. PT'S DOOR OPEN AND NURSE CAN VISUALIZED PT FROM DESK. CALL LIGHT WITH IN REACH. WILL CONT. TO MONITOR.
--- NOTE | 2016-10-31 21:18 | NUR ---
CALLED PT'S FAMILY AND SPOKE TO JR. WAS INFORMED THAT PT HAS NEVER TAKEN ANY MEDICATION FOR ANXIETY OR RESTLESSNESS. SPOKE WITH BUILDING MATERIALS SALES ATTENDANT ABOUT GETTING AN ORDER FOR AN ANXIETY MEDICATION OR A SLEEPING PILL. OFFERED PT FOOD AND DRINK AND PT REFUSED. HE DID TAKE HIS PO MUCINEX WITHOUT DIFFICULTY. WILL CONT TO MONITOR. BED ALARM ON.
--- NOTE | 2016-10-31 22:21 | NUR ---
IV RESIDED BY REY RN/CHARGE NURSE. TO PT'S RIGHT WRIST/FOREARM USING A 22G. X1 ATTEMPT. PT TOLERATED WELL.
--- NOTE | 2016-10-31 22:50 | NUR ---
BENADRYL 50MG PO GIVEN TO PT. ORDER RECEIVED BY ISABELLA PACK PER GENERAL OPERATIONS AGENT. OFFERED PT FOOD AND DRINK, PT DECLINED. OFFERD BED AYON, PT DECLINED. JIAHN SIEGEL PATENT TO BSD BAG WITH DARK YELLOW URINE NOTED. CALL LIGHT WITH IN REACH. BED ALARM ON. PT KEEPING NC ON FOR NOW. WILL CONT. TO MONITOR.
--- NOTE | 2016-10-31 23:39 | NUR ---
PT SLEEPING. APPEARS COMFORTABLE. EYES CLOSED RESP UNLABORED. IS COUGHING SOME IN HIS SLEEP. WILL CONT. TO MONITOR.
--- NOTE | 2016-11-01 02:02 | NUR ---
PT SLEEPING. APPEARS COMFORTABLE. NO DISTRESS NOTED. COUGHING SOME IN SLEEPING, PT IS A MOUTH BREATHER WHILE SLEEPING. WILL CONT. TO MONITOR.
--- NOTE | 2016-11-01 03:40 | NUR ---
PT SLEEPING. NO DISTRESS NOTED. APPEARS COMFORTABLE. O2-98% ON 3L VIA NC, HR-91. WILL CONT. TO MONITOR.
--- NOTE | 2016-11-01 05:50 | NUR ---
PT SLEEPING SOUNDLY. RESP EVEN AND UNLABORED. NO DISTRESS NOTED. RADIOLOGY HERE TO DO CXR. WILL CONT. TO MONITOR.
--- NOTE | 2016-11-01 06:01 | NUR ---
PT BECAME COMBATIVE WITH STAFF WHILE STAFF WAS ATTMEPTING TO GET X-RAY. X-RAY TECH WAS ABLE TO GET THE FRONT VIEW OF THE XRAY, BUT NOT THE SIDE VIEW. WILL NOTIFIED ONCOMING NURSE.
--- NOTE | 2016-11-01 06:17 | NUR ---
PT IS EXTREMLY AGGITATED D/T THE XRAY STAFF ATTEMPT TO PULL HIS ARMS OVER HIS HEAD FOR XRAY. PT PULLED TELEMETRY UNIT OFF AND TRIED TO HIT THIS NURSE WITH THE UNIT. HE HAS TAKEN HIS GOWN OFF AND IS ATTEMPTING TO GET OUT OF BED. PT REFUSES TO ALLOW STAFF TO ASSIST HIM WITH REPOSITIOING. HE IS YELLING "WHAT THE HELL IS WRONG WITH YOU!" AND IS MAKING A FIST IN AN ATTEMPT TO STRIKE STAFF. CHARGE NURSE AND CHICKEN CATCHER AWARE OF PT'S BEHAVIOR. BED IS LOW, SIDE RAILS UP X2, BED ALARM ON. PT'S DOOR WILL REMAIN OPEN SO STAFF CAN VISUALIZE PT AND MONITOR.
--- NOTE | 2016-11-01 06:32 | NUR ---
3 MEMBERS OF THE XRAY STAFF ENTERED PT'S ROOM AND ATTEMPTED TO HOLD PT IN PLACE WHILE GETTING AN XRAY. PT IS YELLING OUT SAYING "STOP, LEAVE ME ALONE, AND GO AWAY." THIS NURSE REMINDED XRAY STAFF THAT PT HAS A RIGHT TO REFUSE AND MY WORDS WERE INGORED. CHARGE NURSE REY MCKENNA NOTIFIED AND SHE STATED TO [place] X-RAY TECH "HEY HE HAS THE RIGHT TO REFUSE." [place] THEN REPLIED WITH "I KNOW." XRAY WAS OBTAINED. SHANNON AUTO BODY REPAIRMAN NOTIFIED OF THIS.
--- NOTE | 2016-11-01 06:36 | NUR ---
UNABLE TO DO RT LATERAL DECUBITUS DO TO PT AGITATION @0630
--- NOTE | 2016-11-01 07:11 | NUR ---
AM ROUNDS- PT IN BED WITH EYES CLOSED, IVPB CEFEPIME HUNG AT THIS TIME. RESP EVEN AND UNLABORED AT RA. BED LOW AND WHEELS LOCKED, BEDSIDE RAILS X3, BED ALARM ON. CALL LIGHT IN REACH, NAD NOTED, WILL CONTINUE TO MONITOR.
[2016-11-01 07:30] VITALS: BP 129/83
--- NOTE | 2016-11-01 10:00 | NUR ---
LIVESTOCK FARMWORKER AT BEDSIDE TO DRAW BLOOD. PT IN BED, WITH EYES CLOSED, RESP EVEN AND UNLABORED. BEDSIDE RAILS X3, BED ALARM ON, CALL LIGHT IN REACH, NAD NOTED, WILL CONTINUE TO MONITOR.
[2016-11-01 10:16] LABS: BASOPHILS 0.1 % (0-2); EOSINOPHILS 0.1 % (0-7); HEMATOCRIT 37.8 % (42.0-54.0); HEMOGLOBIN 12.1 g/dL (13.5-17.5); IMMATURE GRANULOCYTES 0.2 % (0-5); LYMPHOCYTES 10.8 % (15-50); MCH 30.4 pg (26.0-34.0); MEAN PLATELET VOLUME 9.7 fL (7.4-10.4); MONOCYTES 10.1 % (2-11); NEUTROPHILS 78.7 % (40-80); PLATELET COUNT 146 10x3/uL (130-400); RBC 3.98 10x6/uL (4.20-6.10); RDW 14.5 % (11.5-14.5); WBC 9.5 10x3/uL (4.8-10.8)
[2016-11-01 10:47] LABS: ALBUMIN 2.3 g/dL (3.4-5.0); ANION GAP 10.3 mmol/L (8-16); BILIRUBIN - TOTAL 0.82 mg/dL (0.2-1.3); CALCIUM 8.4 mg/dL (8.5-10.1); CARBON DIOXIDE 27.5 mmol/L (21.0-32.0); CREATININE - SERUM 1.1 mg/dL (0.6-1.3); POTASSIUM - SERUM 3.8 mmol/L (3.5-5.1)
[2016-11-01 12:07] VITALS: BP 106/84
--- NOTE | 2016-11-01 12:11 | NUR ---
TRIED TO GET PT TO EAT SOME LUNCH PT STATED "I AM NOT HUNGREY LEAVE ME ALONE". WILL TRY AGAIN IN A LITTLE WHILE. CALL LIGHT IN REACH, BED ALARM ON, BEDSIDE RAILS X3, WILL CONTINUE TO MONITOR.
--- NOTE | 2016-11-01 12:55 | NUR ---
OFFERED PT HIS LUNCH, PT DECLINED, STATED "I AM NOT HUNGRY". OFFERED HIM THE BED AYON PT ALSO DECLINED. BED LOW AND WHEELS LOCKED, CALL LIGHT IN REACH, BED ALARM ON, NAD NOTED, WILL CONTINUE TO MONITOR.
--- NOTE | 2016-11-01 14:15 | NUR ---
REHAB PRESCREEN NOTE: RECIEVED CONSULT FOR MR ISABEL, HE DOES HAVE SOME NEED FOR REHAB WITH SPEECH AND PHYSICAL THERAPY BUT VERY LOW FUNCTIONING RIGHT NOW AND WILL NEED HIM TO BE ABLE TO TOLERATE 3 HOURS OF THERAPY TO BE ABLE TO COME TO REHAB. PHYSICAL THERAPY HASNT SEEN SINCE INTIAL CONSULT, SO WE WILL FOLLOW UP WITH HIM AND SEE IF PROGRESSING ANY. WILL ALSO NEED A OT CONSULT. TALKED TO MANOHAR RICE REGARDING THIS. WENT TO TALK TO PT BUT HE WAS SLEEPING. THANK YOU FOR THIS CONSULT.
--- NOTE | 2016-11-01 15:09 | NUR ---
RECEIVED MD ORDER FOR SKILLED VS ACUTE REHAB. PATIENT EVALUATED THIS AFTERNOON BY ACUTE REHAB. HE IS TOO LOW FUNCTIONING AT THIS TIME. ONLY ONE PHYSICAL THERAPY INTERVENTION 10/28 ASSESSMENT AND THERAPY SESSION. QUAN THE REHAB TOP CARRIER SPOKE WITH MANOHAR HANSEN APN. PT/OT MICHELLE ORDERED. CM TO FOLLOW UP WITH THE FAMILY TO CLARIFY PLAN.
[2016-11-01 15:24] VITALS: BP 111/70
--- NOTE | 2016-11-01 18:40 | NUR ---
PT SCREAMING OUT " I AM BURNING UP EVERYWHERE, IS THIS HOW I AM SUPPOSE TO GO, THEY SAY YOU WITHOUT FEELING ANYTHING, WHATS GOING ON". REMOVED COVERS FROM PT AND CHECKED TEMP WHICH WS 98.6. PT ALSO STATED " MY MOUTH IS DRY". PROVIDED PT WITH A DRINK OF WATER AND PT STATED " YOU ARE DROWNING ME". REPOSITIONED PT IN BED, BUT PT STILL SCREAMING OUT " HELP ME".
--- NOTE | 2016-11-01 19:00 | NUR ---
REPORT RECIEVED FROM OFF GOING NURSE. PT IN BED. PT CONFUSED. ALERT TO PERSON ONLY. PT WAS HOLLERING OUT. WHENEVER ASSESSED, HE DENIES PAIN AND STATED HE WAS HAVING A BAD DREAM. O2 AT 3L VIA NC. BREATHING NORMAL AND UNLABORED. DENIES PAIN. BED PAD DAMP. BED PAD CHANGED AND PT REPOSITIONED. FC NOTED. DARK URINE NOTED. PT ON HEART MONITOR. CONTROLLED AFIB AT 95-100 BPM. RIGHT FA IV NOTED. WAS TOLD IN REPORT THAT PT HAS A HX OF RIPPING OUT IV'S DUE TO HIS CONFUSION/DEMENTA. COBAN WRAPPED AROUND IV FOR SAFTY. CAP REFILLS <3 SECS. PT IN A PLESANT MOOD AT THE MOMENT. CALL LIGHT IN REACH. DENIES PAIN/DISOCOMFORT. WILL CONT POC
[2016-11-01 20:00] VITALS: BP 107/74
--- NOTE | 2016-11-01 20:35 | NUR ---
PT REMAINS CONFUSED BUT IN A PLEASANT MOOD. PT REPOSITIONED. CALL LIGHT IN REACH. 0 S/SX OF DISTRESS/DISCOMFORT NOTED. 0 NEEDS VOICED AT THIS TIME. CALL LIGHT IN REACH. WILL CONT POC
[2016-11-02 01:15] VITALS: BP 91/58
--- NOTE | 2016-11-02 03:09 | NUR ---
IN BED RESTING WITH EYES CLOSED WITH 0 S/SX OF DISTRESS/DISCOMFORT NOTED. BREATHING NORMAL AND UNLABORED. CALL LIGHT IN REACH. WILL CONT POC.
--- NOTE | 2016-11-02 03:36 | NUR ---
PT CLEAN AND DRY. REPOSITIONED FOR COMFORT AND SKIN INTEGRITY. CALL LIGHT IN REACH. WILL CONT POC
[2016-11-02 04:30] VITALS: BP 91/64
--- NOTE | 2016-11-02 06:36 | NUR ---
ALLOWED LAB TO DRAW BLOOD AND XRAY TECHS TO TAKE XRAY THIS AM. IN A PLEASENT MOOD.
[2016-11-02 06:59] LABS: ANION GAP 13.5 mmol/L (8-16); CALCIUM 7.9 mg/dL (8.5-10.1); CREATININE - SERUM 1.1 mg/dL (0.6-1.3); POTASSIUM - SERUM 3.5 mmol/L (3.5-5.1)
--- NOTE | 2016-11-02 07:45 | NUR ---
PT HOLLERATING OUT TO DIAZ "HELP ME, ANYONE OUT THERE" UPON ENTERING ROOM FOUND PT TO BE VERY CONFUSED ON TIMES AND SITUATION. PT BELIEVES WE ARE HIDING HIM AND THAT NOONE HAS COME TO CHECK ON HIM OR DO ANYTHING FOR HIM. CALMED PT DOWN AND HE VERBALIZED UNDERSTANDING BUT STILL IS CONFUSED AND STATES "BUT THEY HAVE BEEN HIDING ME" NO FAMILY IS AVAILABLE BUT WILL CHECK WITH THEM TO TRY AND SEE BASELINE ORIENTATION. PT RESTING IN BED AND DENIES ANY CURRENT PAIN STATES "I JUST WANT COFFEE" PROVIDED PT WITH COFFEE AND WILL CPOC. BED IN LOWEST, SIDE RAILS X2, CL IN REACH AND BUILT IN BED ALARM ON.
--- NOTE | 2016-11-02 10:23 | NUR ---
PT AWAKE BILATERAL ADVENTITIOUS BREATH SOUNDS SPO2 97 ON 2L NC. BED ELEVATED APPROX 30 DEGREES NO S/S OF DYPSNEA OR RESPIRATORY DISTRESS.
[2016-11-02 10:29] VITALS: BP 96/58
--- NOTE | 2016-11-02 11:50 | NUR ---
PT UP IN CHAIR RESTING QUIETLY AND STATES HE IS COMFORTABLE. CL IN REACH, BUILT IN CHAIR ALARM IN PLACE. WILL CTM.
[2016-11-02 12:00] VITALS: BP 94/60
--- NOTE | 2016-11-02 12:18 | NUR ---
Patient Name: MONY HALL Encounter No: [id number] : 1925 Primary Insurance: MEDICARE A & B Anticipated DC Date: Planned Disposition: Home DCP follow-up note: CM RECEIVED ORDER FOR SNF OR REHAB PLACEMENT. CM SPOKE TO PT IN ROOM WHO REPORTS TO HAVE MEMORY PROBLEMS, PT REPORTS HE WANTS TO GO HOME BUT DIRECTED CM TO CALL HIS REGARDING DISCHARGE PLAN. CM CALLED [facility], , WHO REPORTS THEY DO NOT WANT SHELTER OR REHAB FOR PATIENT, PT WILL RETURN HOME AND READMIT TO HOSPICE. CM CALLED PT'S DAUGHTER, JOSI MCKEON, , SPOKE TO SON IN LAW LORRAINE MCKEON WHO REPORTS PLAN FOR PT TO RETURN HOME WITH READMIT TO [facility], PT'S SON, BEATRIZ HALL, IS WORKING WITH HOSPICE NOW. CM CALLED BEATRIZ HALL, , LEFT MESSAGE ASKING FOR RETURN CALL; BEATRIZ RETURNED CALL, VERIFIED PLAN OF HOME WITH [facility]. CM CALLED HOSPICE [facility], , SPOKE TO CINDY WHO VERIFIED FAMILY PLAN AND [facility] WILL READMIT PT AFTER HE ARRIVES BACK HOME. ALL MEDICAL EQUIPMENT IS IN THE HOME. FOR DISCHARGE HOME, NOTIFY HOSPICE [facility] AT [phone]; NURSE TO MEET PT AT HOME TO ADMIT UPON ARRIVAL. FAX DISCHARGE INFORMATION TO HOSPICE AT [phone]. PT'S SON IN LAW TO TRANSPORT PT HOME AT DISCHARGE. Rodrigo Serrato, CASE MANAGEMENT
--- NOTE | 2016-11-02 12:19 | NUR ---
Patient Name: MONY HALL Encounter No: [id number] : 1925 Primary Insurance: MEDICARE A & B Anticipated DC Date: Planned Disposition: Home DCP follow-up note: CM RECEIVED ORDER FOR SNF OR REHAB PLACEMENT. CM SPOKE TO PT IN ROOM WHO REPORTS TO HAVE MEMORY PROBLEMS, PT REPORTS HE WANTS TO GO HOME BUT DIRECTED CM TO CALL HIS REGARDING DISCHARGE PLAN. CM CALLED [facility], , WHO REPORTS THEY DO NOT WANT LONG-TERM OR REHAB FOR PATIENT, PT WILL RETURN HOME AND READMIT TO HOSPICE. CM CALLED PT'S DAUGHTER, JOSI MCKEON, , SPOKE TO SON IN LAW LORRAINE MCKEON WHO REPORTS PLAN FOR PT TO RETURN HOME WITH READMIT TO [facility], PT'S SON, BEATRIZ HALL, IS WORKING WITH HOSPICE NOW. CM CALLED BEATRIZ HALL, , LEFT MESSAGE ASKING FOR RETURN CALL; BEATRIZ RETURNED CALL, VERIFIED PLAN OF HOME WITH . CM CALLED HOSPICE [facility], , SPOKE TO CINDY WHO VERIFIED FAMILY PLAN AND [facility] WILL READMIT PT AFTER HE ARRIVES BACK HOME. ALL MEDICAL EQUIPMENT IS IN THE HOME. CM NOTIFIED PT, IMPORTANT MESSAGE FROM MEDICARE PROVIDED AND EXPLAINED. FOR DISCHARGE HOME, NOTIFY HOSPICE [facility] AT [phone]; NURSE TO MEET PT AT HOME TO ADMIT UPON ARRIVAL. FAX DISCHARGE INFORMATION TO HOSPICE AT [phone]. PT'S SON IN LAW TO TRANSPORT PT HOME AT DISCHARGE. Rodrigo Serrato, CASE MANAGEMENT
--- NOTE | 2016-11-02 14:21 | NUR ---
ALL IV TUBING CHANGED OUT PER POLICY OF 72HOURS. NEW TUBING PRIMED AND DATED. INITIATED IVPB LEVAQUIN INFUSING VIA R.FA PIV. PT STILL CONFUSED BUT IN PLEASANT MOOD. PT STATES HE IS TIRED AND WOULD LIKE TO REST. BOBO CARE PROVIDED PER PROTOCOL. BOBO DRAINING CLEAR YELLOW URINE TO COLLECTION BAG OFF R.SIDE OF BED, PATENT WITHOUT KINKS OR BLOCKAGE NOTED. NO FURTHER NEEDS AT THIS TIME. CL IN REACH, BED IN LOWEST, SIDE RAILS X2 AND BUILT IN BED ALARM ON. WILL CPOC.
--- NOTE | 2016-11-02 17:10 | NUR ---
PT CONFUSED ASKING WHERE HE IS AND STATES "I THINK IM SICK WITH A COLD" REORIENTED PT TO SITUATION AND PLACE/TIME. PT VERBALIZED UNDERSTANDING AND VOICED THANKS. PT DENIES ANY CURRENT PAIN OR NEEDS AND IS GOING TO TRY TO EAT SOME DINNER. CL IN REACH, BED IN LOWEST, SIDE RAILS X2. WILL CPOC.
[2016-11-02 17:43] VITALS: BP 107/66
--- NOTE | 2016-11-02 19:38 | NUR ---
RECEIVED REPORT, WILL ASSUME CARE OF PT, PT IS SLEEPING, BED IS LOW, SRX2, CALL LIGHT IN REACH, WILL CONTINUE PLAN OF CARE
[2016-11-02 20:00] VITALS: BP 111/71
--- NOTE | 2016-11-03 03:52 | NUR ---
PT CALLING OUT/YELLING. CONFUSED/LONELY. AFTER GIVEN COMPLETE BED BATH PER DECKHAND SPONGE BOAT, PT THEN WENT TO SLEEP. CALL LIGHT IN REACH. CPOC.
--- NOTE | 2016-11-03 04:46 | NUR ---
ASSESSENT COMPLETE, SEE FLOWSHEET, PT IS SLEEPING, BED ALARM IS ON, BED IS LOW, SRX2, CALL LIGHT IN REACH, WILL CONTINUE TO MONITOR
[2016-11-03 05:11] VITALS: BP 94/63
--- NOTE | 2016-11-03 07:52 | NUR ---
0715- AM ROUNDING- RECEIVED REPORT FROM MOTION PICTURE PHOTOGRAPHER NURSE LINDSAY. PT IS CURRETNLY LAYING IN BED ON BACK WITH EYES CLOSED RESTING. ON 02 AT 4L VIA NC. ON MONITOR SHOWING CONTROLLED A-FIB, HR 95. IV SEEN TO RIGHT FOREARM WITH NS RUNNING AT KVO (5CC). BOBO CATHETER SEEN WITH CLEAR YELLOW URINE. NO NEED AT CURRENT TIME. BED IS IN LOW POSITION, SIDE RAILS ARE UP X2, AND CALL LIGHT IS IN REACH. WILL CONTINUE TO MONITOR AND CONTINUE WITH PLAN OF CARE.
[2016-11-03 09:15] VITALS: BP 94/62
--- NOTE | 2016-11-03 12:36 | NUR ---
CALLED INTO PTS ROOM. FABRICIO PARKER STATES PTS 02 SAT IS LOW AND CANNOT GET IT UP. 02 SAT IS 82% ON 5L OF 02 VIA NC. RESP CALLED. RT JACQUELINE IN ROOM NOW. DR. ERVIN MELENDEZ. WILL AWAIT CALLBACK
--- NOTE | 2016-11-03 12:42 | NUR ---
MANOHAR HANSEN NP ON UNIT INFORMED OF SITUAION. RT JACQUELINE IS STATING WE NEED TO GET ABGS. MANOHAR HANSEN NP STATES TO CALL DR. MUELLER HE IS MANAGING PNEUMONIA. JACQUELINE RESP IN ROOM NOW.
--- NOTE | 2016-11-03 12:43 | NUR ---
DR. MUELLER PAGED FOR SECOND TIME.
--- NOTE | 2016-11-03 12:48 | NUR ---
RECEIVED CALLBACK FROM DR. MUELLER. EXPLAINED TO DR. MUELLER PTS 02 SAT AND RESP IN ROOM. NEW ORDERS RECEIVED. WILL CONTINUE TO MONITOR.
--- NOTE | 2016-11-03 12:56 | NUR ---
RESP IN ROOM NOW. PTS 02 SAT IS NOW 96% ON 9L VIA OXIMIZER. WILL CONTINUE TO MONTITOR.
[2016-11-03 13:38] LABS: BASOPHILS 0.1 % (0-2); EOSINOPHILS 0 % (0-7); HEMATOCRIT 37.1 % (42.0-54.0); IMMATURE GRANULOCYTES 0.4 % (0-5); LYMPHOCYTES 6.8 % (15-50); MCH 30.6 pg (26.0-34.0); MCHC 32.3 g/dL (31.0-37.0); MCV 94.6 fL (80.0-100.0); MEAN PLATELET VOLUME 10.2 fL (7.4-10.4); MONOCYTES 8.9 % (2-11); NEUTROPHILS 83.8 % (40-80); PLATELET COUNT 133 10x3/uL (130-400); RBC 3.92 10x6/uL (4.20-6.10); RDW 14.6 % (11.5-14.5); WBC 14.2 10x3/uL (4.8-10.8)
[2016-11-03 13:54] LABS: ANION GAP 15.6 mmol/L (8-16); CALCIUM 8.1 mg/dL (8.5-10.1); CREATININE - SERUM 1.3 mg/dL (0.6-1.3); POTASSIUM - SERUM 3.6 mmol/L (3.5-5.1)
--- NOTE | 2016-11-03 14:53 | NUR ---
OT NOTE: PT COMPLETED BED MOB WITH MIN-MOD A. PT COMPLETED DYNAMIC SITTING BALANCE WITH SBA-CGA. PT COMPLETED BUE VENEER GLUER EXERCISES. PT COMPLETED SIMPLE HYGIENE TASK AT EOB WITH SBA-CGA. THANK YOU, RAFAELA JOHNSON/Justin
--- NOTE | 2016-11-03 15:19 | NUR ---
OT NOTE: PT REMAINS VERY CONFUSED TODAY. REQUESTED TO ATTEMPT STANDING, HE STATED , " I DONT KNOW IF I CAN DO IT, BUT I HAVE TO TRY". PT REQUIRED MAX ASSIST WITH SUPINE TO SIT; STATIC SITTING WITH SPV; MAX ASSIST FOR STANDING, BUT UNABLE TO MAINTAIN GREATER THAN A FEW SECONDS. PT REQUIRED RE DIRECTION AND RE ORIENTATION THROUGHOUT TMT SESSION. HE WAS ALERT TO NAME ONLY. ATTEMPTED LE DRESSING , INCLUDING DONNING SOCKS, HOWEVER, PT UNABLE TO PERFORM AT ALL..REQUIRED TOTAL ASSIST. PT WAS ABLE TO PERFORM EXS WHILE ON EDGE OF BED, WITH INSTRUCTIONAL CUES AND CUES TO STAY ON TASK
[2016-11-03 16:21] VITALS: BP 113/82
--- NOTE | 2016-11-03 17:53 | NUR ---
PT IS CURRENTLY SITTING UP IN BED STATING " BEATRIZ, PUT YOUR SHIRT BACK ON.". PT APPEARS TO BE CONFUSED. PT IS NON-COMPLIENT AND TRYS TO TAKE OXYGEN OFF AT TIMES. DR. MUELLER IS AWARE OF THIS. PT INSTRUCTED TO KEEP OXYGEN ON TO KEEP 02 SATS AT A NORMAL LEVEL. BED ALARM IS ON. BED IS IN LOW POSITION, SIDE RAILS ARE UP X2, CALL LIGHT IS IN REACH, AND NON-SKID SOCKS ARE ON.
[2016-11-03 17:59] VITALS: BP 120/69
--- NOTE | 2016-11-03 18:32 | NUR ---
WENT INTO PTS ROOM TO FIX IV PUMP WITH WAS GOING OFF. PT IS TRYING TO RIP IV TUBING, TUGGING AT IT FIRMLY. PTS DINNER TRAY HAS BEEN THROWN ON FLOOR. PT HAS 02 VIA OXIMIZER IS OFF AND PT IS REFUSING TO KEEP IT ON. PT CONTINUOUSLY STATES " I WANT TO , JUST LET ME ". BALA GALLOWAY IN ROOM NOW ASSISTED ME TO PLACE PTS 02 BACK ON. PT IS STILL REFUSING TO KEEP 02 ON. PT STATES " IT'S SHARP AND IT KEEPS CUTTING ME", NO BLEEDING SEEN IN SITE, PT APPEARS TO BE CONFUSED. BED ALARM IS ON. BED IS IN LOW POSITION, SIDE RAILS ARE UP X2, AND CALL LIGHT IS IN REACH.
--- NOTE | 2016-11-03 18:45 | NUR ---
RECEIVED CALLBACK FROM MANOHAR HANSEN NP WITH NEW ORDERS RECEIVED.
--- NOTE | 2016-11-03 19:49 | NUR ---
PT IN BED WITH HOB UP FOR COMFORT. WATCHING TV. PT'S CODE STATUS IS DNR. TELEMETRY. ELECTROLYTE PROTOCOL. CONFUSED. BED IN LOWEST POSITION AND CALL LIGHT WIHTIN REACH.
[2016-11-03 20:00] VITALS: BP 106/65
--- NOTE | 2016-11-03 21:10 | NUR ---
PT YELLING OUT AND DISRUPTING OTHER PT'S. PT YELLING AT STAFF AND NOT LISTENING WHEN TRYING TO REORIENT PT.
--- NOTE | 2016-11-03 21:24 | NUR ---
RIGHT FA IV INFILTRATED. D/C IV WITH CATH TIP INTACT. WILL ATTEMPT TO RESITE IV.
--- NOTE | 2016-11-04 00:03 | NUR ---
LEFT FA 22GAUGE INSERTED ON X2 ATTEMPT BY TRUE CALI. PT TOLERATED PROCEDURE WELL.
[2016-11-04 01:10] VITALS: BP 121/81
--- NOTE | 2016-11-04 02:15 | NUR ---
PT IN BED WITH HOB UP FOR COMFORT. RESTING QUIETLY. BED IN LOWEST POSITION AND CALL LIGHT WITHIN REACH.
--- NOTE | 2016-11-04 04:22 | NUR ---
RESTING WITH EYES CLOSED, RESPERATIONS EVEN, NO S/S DISTRESS NOTED.
[2016-11-04 05:27] LABS: BASOPHILS 0.1 % (0-2); EOSINOPHILS 0 % (0-7); HEMATOCRIT 38.7 % (42.0-54.0); HEMOGLOBIN 12.4 g/dL (13.5-17.5); IMMATURE GRANULOCYTES 0.3 % (0-5); MCH 30.4 pg (26.0-34.0); MCV 94.9 fL (80.0-100.0); MEAN PLATELET VOLUME 9.9 fL (7.4-10.4); MONOCYTES 7.9 % (2-11); NEUTROPHILS 83.7 % (40-80); PLATELET COUNT 136 10x3/uL (130-400); RBC 4.08 10x6/uL (4.20-6.10); RDW 14.4 % (11.5-14.5); WBC 13.6 10x3/uL (4.8-10.8)
[2016-11-04 05:47] LABS: ANION GAP 14.2 mmol/L (8-16); CALCIUM 8.2 mg/dL (8.5-10.1); CARBON DIOXIDE 27.6 mmol/L (21.0-32.0); CREATININE - SERUM 1.6 mg/dL (0.6-1.3)
[2016-11-04 06:12] LABS: POTASSIUM - SERUM 2.8 mmol/L (3.5-5.1)
--- NOTE | 2016-11-04 07:57 | NUR ---
0715- AM ROUNDING- RECEIVED REPORT FROM SECOND GRADE TEACHER NURSE ILEANA. PT IS CURRENTLY SITTING UP IN BED WITH EYES OPEN. PT HAD 02 (VIA OXIMIZER) OFF WHEN MAKING AM ROUNDS. PLACED 02 BACK ON PT AND PT REFUSED AND TOOK 02 (VIA OXIMIZER) OFF. I INFORMED PT THAT IT IS VERY IMPORTANT TO KEEP 02 ON. PT REFUSED 02. DNR PER ORDER. ON MONITOR SHOWING UNCONTROLLED A-FIB, HR 103. CHRONIC BOBO CATHETER SEEN WITH SLIGHTLY DARKENED URINE. ON EP, ILEANA TX PT PER EP, WILL CONTINUE TO TX ORDERED. BED ALARM IS ON. BED IS IN LOW POSITION, SIDE RAILS ARE UP X2, AND CALL LIGHT IS IN REACH. WILL CONTINUE TO MONITOR AND CONTINUE WITH PLAN OF CARE.
[2016-11-04 08:32] VITALS: BP 123/92
[2016-11-04 11:59] VITALS: BP 92/52
--- NOTE | 2016-11-04 14:21 | NUR ---
OT NOTE: PT VERY LETHARGIC IN PM..UPON INITITAL ATTEMPT, PT WOULD AROUSE FOR JUST A FEW SECONDS AND FALL BACK ASLEEP. ON SECOND ATTEMPT, ASSISTED PT TO SIDE OF BED WITH MAX ASSIST, HOWEVER, LIMITED PROGRESS DUE TO PTS LETHARGY.
--- NOTE | 2016-11-04 14:32 | NUR ---
MANOHAR HANSEN NP ON UNIT. INFORMED HER THAT PT HAS HAD ONE DOSE (PER EP) OF POTASSIUM THIS AM FOR SEAM CLOSER NURSE BUT HAS REFUSED THE LAST TWO DOSES PT WAS SUPPOSE TO GET PER EP. MANOHAR HANSEN NP STATES TO GIVE PT 20MEQ POTASSIUM IV AND THEN RECHECK. WILL DO ORDERED.
--- NOTE | 2016-11-04 14:55 | NUR ---
Nutrition follow-up: Diet: Low sodium mechanical soft PO intake very poor due to confusion, agitation No BM charted since admit Wt: 213# -> pt with wt loss Recommend nutrition support start due to poor po intake. NGT vs PEG tube placement and Osmolite 1.5 noe started @ 25 ml/hr and increased to goal rate of 60 ml/hr if medically feasible. RDN following,
[2016-11-04 15:24] VITALS: BP 120/66
--- NOTE | 2016-11-04 16:40 | NUR ---
CALLED PT SPOUSE TO NOTIFY PT READY FOR DISCHARGE. SHE ADVISED NO ONE TO PICK PT UP UNTIL TOMORROW MORNING. SPOKE WITH DR. DAVIS IN PERSON WHO ADVISED OK TO KEEP PT UNTIL TOMORROW MORNING.
--- NOTE | 2016-11-04 16:59 | NUR ---
OT NOTE: PT COMPLETED GROOMING TASK WITH CUES TO MAINTAIN NATURAL SCIENCES PROFESSOR. PT COMPLETED BUE AROM EXS FOR INCREASED I WITH BED MOB. PT COMPLETED BED MOB WITH MIN-MOD A. THANK YOU, RAFAELA JOHNSON/Justin
--- NOTE | 2016-11-04 17:34 | NUR ---
PER NUBIA, CREATIVE COORDINATOR STATES PTS D/C PAPERWORK IS READY, HOWEVER PT IS TO D/C IN AM DUE TO FAMILY NOT BEING ABLE TO COME GET PT TONIGHT. WILL CONTINUE TO MONITOR.
--- NOTE | 2016-11-04 17:35 | NUR ---
1445- MANOHAR HANSEN NP INFORMED ME TO NOT GIVE PT ANYMORE IV ANTIBIOTICS AND TO NOT GIVE THE 20MEQ OF POTASSIUM IV DUE TO PT BEING D/C TODAY.
--- NOTE | 2016-11-04 18:31 | NUR ---
PT IS CURRENTLY SITTING UP IN BED WITH EYES OPEN RESTING. PT SUPPOSE TO D/C THIS EVENING HOWEVER, BALA HYDE STATES PT WILL D/C IN AM DUE TO NO TRANSPORTATION TONIGHT. BED ALARM IS ON. BED IS IN LOW POSIITON, SIDE RAILS ARE UP X2, CALL LIGHT IS IN REACH, AND NON-SKID SOCKS ARE ON. WILL CONTINUE TO MONITOR.
--- NOTE | 2016-11-04 19:36 | NUR ---
UPON GOING INTO PTS ROOM, NOTICED PTS OXIMIZER WAS OFF. ATTEMPTED TO PLACE OXIMIZER BACK ON PT AND PT REFUSED AND SHOOK HIS HEAD TO WHERE I COULD NOT PLACE 02 ON PT.
[2016-11-04 20:00] VITALS: BP 128/75
--- NOTE | 2016-11-04 20:11 | NUR ---
JULISSA, BELL CAPTAIN IS ATTEMPTED TO GET PTS PULSE OX READING FOR VITAL SIGNS. PT IS REFUSING FOR ZEE AND I TO TAKE PULSE 0X. PTS 02 VIA OXIMIZER IS OFF. THIS NURSE ATTEMPTED TO PLACE OXIMIZER BACK ON PT AND PT YELLED AND TOOK 02 VIA OXIMIZER RIGHT OFF.
--- NOTE | 2016-11-04 20:46 | NUR ---
Received patient in bed resting quietly, refusing to wear oxygen, boateng in place draining well, PIV in left forearm infusing @10ml/hr. Respirations unlabored. No voiced complaints at this time.
--- NOTE | 2016-11-04 23:59 | NUR ---
Continues to rest, eyes closed, deemed to be sleeping, respirations easy and regular.
--- NOTE | 2016-11-05 04:10 | NUR ---
Flailing legs over side rails, assisted back into bed. PIV is currently SL as patient kept wrapping the IV tubing around his arm. Refused VS, waving fists at Tech, not allowing her to place BP cuff on, gesturing staff to go away and leave him alone. VS were not obtained.
[2016-11-05 05:23] LABS: BASOPHILS 0.1 % (0-2); EOSINOPHILS 0 % (0-7); HEMATOCRIT 38.5 % (42.0-54.0); HEMOGLOBIN 12.7 g/dL (13.5-17.5); IMMATURE GRANULOCYTES 0.5 % (0-5); LYMPHOCYTES 6.8 % (15-50); MCH 30.7 pg (26.0-34.0); MEAN PLATELET VOLUME 9.9 fL (7.4-10.4); NEUTROPHILS 84.6 % (40-80); PLATELET COUNT 155 10x3/uL (130-400); RBC 4.14 10x6/uL (4.20-6.10); RDW 14.7 % (11.5-14.5)
--- NOTE | 2016-11-05 05:30 | NUR ---
level glass forming machine operator on, rhythm has remained varied between CAF (Controlled A-Fib) and UCAF (Uncontrolled A-Fib) with BBB and HR in the low 100s/min.
[2016-11-05 05:38] LABS: WBC 17.3 10x3/uL (4.8-10.8)
[2016-11-05 05:50] LABS: ANION GAP 12.7 mmol/L (8-16); CALCIUM 8.9 mg/dL (8.5-10.1); CARBON DIOXIDE 28.8 mmol/L (21.0-32.0); CREATININE - SERUM 1.9 mg/dL (0.6-1.3)
[2016-11-05 05:53] LABS: POTASSIUM - SERUM 3.5 mmol/L (3.5-5.1)
--- NOTE | 2016-11-05 07:00 | NUR ---
ASSESSMENT PER FLOWSHEET.
[2016-11-05 08:33] VITALS: BP 107/63
--- NOTE | 2016-11-05 10:00 | NUR ---
BATH GIVEN LINENS CHANGED. PT YELLING OUT GARBLED LANGUAGE. TURNED TO RIGHT SIDE.
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
--- NOTE | 2016-11-05 10:45 | NUR ---
O2 DELIVERED. AWAITING FAMILY TO GIVE THE CALL TO CALL AMBULANCE
--- NOTE | 2016-11-05 11:00 | NUR ---
BATH GIVEN LINENS CHANGED.
--- NOTE | 2016-11-05 13:37 | NUR ---
LEFT VIA AMBULANCE.
== END 2016-11-05 14:02 | disposition home health service (06) | DRG 177 ==
LOC: D.ER 12:49 → D.M2 16:35 → D.SDCHOLD 19:45 → D.M2 20:00 → D.SDCHOLD 10-30 12:55 → D.M2 10-30 12:59
PROVIDERS: Emergency Medicine; Family Medicine; Internal Medicine Pulmonary Disease; ADMIT Emergency Medicine
PROC: 0T9B70Z Drainage of Bladder with Drainage Device, Via Natural or Artificial Opening (ICD-10-PCS; principal; 2016-10-27)
DX: J69.0 Pneumonitis due to inhalation of food and vomit (principal); I50.23 Acute on chronic systolic (congestive) heart failure; G93.49 Other encephalopathy; N39.0 Urinary tract infection, site not specified; F17.203 Nicotine dependence unspecified, with withdrawal; J44.0 Chronic obstructive pulmonary disease with (acute) lower respiratory infection; J44.1 Chronic obstructive pulmonary disease with (acute) exacerbation; I11.0 Hypertensive heart disease with heart failure; N40.0 Benign prostatic hyperplasia without lower urinary tract symptoms; F03.90 Unspecified dementia, unspecified severity, without behavioral disturbance, psychotic disturbance, mood disturbance, and anxiety; D63.8 Anemia in other chronic diseases classified elsewhere; R79.89 Other specified abnormal findings of blood chemistry; I08.1 Rheumatic disorders of both mitral and tricuspid valves; J15.6 Pneumonia due to other Gram-negative bacteria; J13 Pneumonia due to Streptococcus pneumoniae; I27.2 Other secondary pulmonary hypertension; Z86.73 Personal history of transient ischemic attack (TIA), and cerebral infarction without residual deficits